=== PATIENT | female | born 1965 | race Two or more races ===

== ENCOUNTER 2025-01-01 15:04 | Emergency (ER) | payer MEDICAID, OTHER ==
[~2025-01-01] VITALS: Ht 154.9 cm; Wt 62.9 kg
--- NOTE | 2025-01-01 15:56 | ED.PDOC ---
Altered Mental Status HPI Comments 59 year old female brought in by presents to the ED with chief complaint of ALOC. reports that the patient has been experiencing increasing confusion and and imbalance for the last 8 months. relays that the patient may have Alzheimer's, but she has not had a proper evaluation due to insurance issues. Patient is not able to answer questions appropriately and is noted to cry frequently when asked questions. denies any chest pain, SOB, dizziness, headache, N/V, numbness, or weakness. Chief Complaint: ALOC Time Seen by MD: 15:52 Reviewed Notes: Nurses Notes, Medications, Allergies Allergies: Coded Allergies: Codeine (Verified Allergy, Unknown, 01/01/25) Information Source: Patient, Spouse Mode of Arrival: Ambulatory Severity: Moderate Timing: Months Duration: Since onset Prehospital treatment: None Quality: Confusion, Memory Loss History of: Dementia Past Medical History PAST MEDICAL HISTORY: HTN Past Medical History (Other): Possible Alzheimers Surgical History: Denies all surgeries OPHTHALMIC AIDE History: Denies all OPHTHALMIC AIDE Hx Family History Family History: Reviewed,noncontributory to illness Social History Smoker: Non-Smoker Alcohol: Denies ETOH Use Drugs: Denies Drug Use Lives In: Home Constitutional: denies: chills, diaphoresis, fatigue, fever, malaise, sweats, weakness, others EENTM: denies: blurred vision, double vision, ear bleeding, ear discharge, ear drainage, ear pain, ear ringing, eye pain, eye redness, hearing loss, mouth pain, mouth swelling, nasal discharge, nose bleeding, nose congestion, nose pain, photophobia, tearing, throat pain, throat swelling, voice changes, others Respiratory: denies: cough, hemoptysis, orthopnea, SOB at rest, shortness of breath, SOB with excertion, stridor, wheezing, others Cardiovascular: denies: chest pain, dizzy spells, diaphoresis, Dyspnea on exertion, edema, irregular heart beat, left arm pain, lightheadedness, palpitations, PND, syncope, others Gastrointestinal: denies: abdomen distended, abdominal pain, blood streaked bowels, constipated, diarrhea, dysphagia, difficulty swallowing, hematemesis, melena, nausea, poor appetite, poor fluid intake, rectal bleeding, rectal pain, vomiting, others Genitourinary: denies: abnormal vagina bleeding, burning, dyspareunia, dysuria, flank pain, frequency, hematuria, incontinence, pain, , vagina discharge, urgency, others Neurological: reports: others (Imbalance, Confusion); denies: dizziness, fainting, headache, left sided numbness, left sided weakness, numbness, paresthesia, pre-existing deficit, right sided numbness, right sided weakness, seizure, speech problems, tingling, tremors, weakness Musculoskeletal: denies: back pain, gout, joint pain, joint swelling, muscle pain, muscle stiffness, neck pain, others Integumetry: denies: bruises, change in color, change in hair/nails, dryness, laceration, lesions, lumps, rash, wounds, others Allergic/Immunocompromised: denies: Difficulty Healing, Frequent Infections, Hives, Itching, others Hematologic/Lymphatic: denies: anemia, blood clots, easy bleeding, easy bruising, swollen glands, others Endocrine: denies: excessive hunger, excessive sweating, excessive thirst, excessive urination, flushing, intolerance to cold, intolerance to heat, unexplained weight gain, unexplained weight loss, others Psychiatric: denies: anxiety, bipolar disorder, depression, hopeless, panic disorder, schizophrenia, sleepless, suicidal, others Unable to Obtain due to: Altered Mental Status All Other Systems: Reviewed and Negative Physical Exam General Appearance: Moderate Distress ( patient was in mild to moderate distress due to her complaints. Patient was tearful and unable to answer questions related to her medical history or questions related to her chief complaint at arrival.), Normal HEENT: Normal ENT Inspection, Pharynx Normal, TMs Normal Neck: Full Range of Motion, Non-Tender, Normal, Normal Inspection Respiratory: Chest Non-Tender, Lungs Clear, No Accessory Muscle Use, No Respiratory Distress, Normal Breath Sounds Cardiovascular: No Edema, No JVD, No Murmur, No Gallop, Normal Peripheral Pulses, Regular Rate/Rhythm Breast Exam: Deferred Gastrointestinal: No Organomegaly, Non Tender, No Pulsatile Mass, Normal Bowel Sounds, Soft Genitalia: Deferred Pelvic: Deferred Rectal: Deferred Extremities: No calf tenderness, Normal capillary refill, No pedal edema Musculoskeletal : Apperance: Normal Neurologic: NOT DONE Cerebellar Function: NOT DONE Reflexes: NOT DONE Skin: Dry, Normal Color, Warm Lymphatic: No Adenopathy Was a procedure done? Was a procedure done?: No Differential Diagnosis (ALOC) Differential Diagnosis: Other ( Intracranial mass, subarachnoid hemorrhage, subdural hematoma, early-onset Alzheimer's, early-onset dementia, sepsis, electrolyte abnormality) X-Ray, Labs, Meds, VS Vital Signs Date Time Temp Pulse Resp B/P (MAP) Pulse Ox O2 Delivery O2 Flow Rate FiO2 01/01/25 18:30 154/85 01/01/25 18:00 62 17 154/85 (108) 95 01/01/25 17:40 163/94 01/01/25 17:00 62 01/01/25 16:30 98.0 64 17 163/94 (117) 95 98.0 01/01/25 16:30 64 17 95 Room Air* 0 21 01/01/25 15:50 61 01/01/25 15:28 98.4 72 18 147/93 (111) 99 Lab Test 01/01/25 16:19 01/01/25 15:44 Range/Units White Blood Count 9.8 4.4-10.8 10^3/uL Red Blood Count 5.17 4.0-5.20 10^6/uL Hemoglobin 14.3 12.2-16.2 g/dL Hematocrit 43.0 36.0-46.0 % Mean Corpuscular Volume 83.2 80.0-100.0 fL Mean Corpuscular Hemoglobin 27.7 L 28.0-32.0 pg Mean Corpuscular Hemoglobin Concent 33.3 32.0-36.0 g/dL Red Cell Distribution Width 14.5 H 11.8-14.3 % Platelet Count 398 140-450 10^3/uL Mean Platelet Volume 8.1 6.9-10.8 fL Neutrophils (%) (Auto) 59.6 37.0-80.0 % Lymphocytes (%) (Auto) 28.7 10.0-50.0 % Monocytes (%) (Auto) 8.8 0.0-12.0 % Eosinophils (%) (Auto) 1.4 0.0-7.0 % Basophils (%) (Auto) 1.5 0.0-2.0 % Neutrophils # (Auto) 5.8 1.6-8.6 10 ^3/uL Lymphocytes # (Auto) 2.8 0.4-5.4 10 ^3/uL Monocytes # (Auto) 0.9 0-1.3 10 ^3/uL Eosinophils # (Auto) 0.1 0-0.8 10 ^3/uL Basophils # (Auto) 0.1 0-0.2 10 ^3/uL Nucleated Red Blood Cells 0.1 % Sodium Level 142 136-145 mmol/L Potassium Level 3.6 3.5-5.1 mmol/L Chloride Level 107 98-107 mmol/L Carbon Dioxide Level 30 20-31 mmol/L Anion Gap 5 5-15 Blood Urea Nitrogen 18 9-23 mg/dL Creatinine 0.87 0.550-1.02 mg/dL Glomerular Filtration Rate Calc 76 >90 mL/min BUN/Creatinine Ratio 20.7 H 10.0-20.0 Serum Glucose 110 H 74-106 mg/dL Calcium Level 10.1 8.7-10.4 mg/dL Magnesium Level 2.5 1.6-2.6 mg/dL Total Bilirubin 0.3 0.2-1.0 mg/dL Aspartate Amino Transferase (AST) 18 13-40 U/L Alanine Aminotransferase (ALT) 33 7-40 U/L Alkaline Phosphatase 102 46-116 U/L Troponin I High Sensitivity 4 </=34 ng/L Total Protein 6.9 5.7-8.2 g/dL Albumin 4.6 3.2-4.8 g/dL Plasma/Serum Blood Alcohol < 3.0 <10 mg/dL POC Glucose 117 H 70-106 mg/dl Current Medications Medications (Trade) Dose Ordered Sig/Stephanie Route Start Time Stop Time Status Last Admin Clonidine HCl (Catapres Tablet) 0.2 mg ONCE ONCE PO 01/01/25 17:15 01/01/25 17:16 DC 01/01/25 17:40 CT Head: FINDINGS: Supratentorial Region: No evidence for large acute territorial ischemia. Age- indeterminate infarcts are seen in the bilateral caudate heads, lentiform nuclei and thalami. No intracranial hemorrhage is noted. Confluent white matter hypoattenuating foci are noted bilaterally, which typically reflect chronic microvascular ischemic changes. Posterior Fossa: No acute abnormality. Brainstem: Old lacunar infarcts are seen in callie. Sellar/Suprasellar Region: Unremarkable. Ventricles, Cisterns, Sulci: Age-appropriate. Orbits: Unremarkable. Paranasal Sinuses: Free fluid in the dependent part of left sphenoid sinus noted. No significant mucoperiosteal thickening. Mastoid Air Cells: Unremarkable. Vasculature: Intracranial arterial calcified plaque formation noted. Bones/Soft Tissues: No acute abnormality. Other: None. IMPRESSION: 1. No large acute territorial ischemia or intracranial hemorrhage. 2. 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 Correlate with focal findings. Further evaluation with MRI could be completed if clinically warranted. 3. Extensive chronic microvascular ischemic changes, advanced for patient's age. 4. Small amount of free fluid in the left maxillary sinus suggestive of acute sinusitis. X-Ray, Labs, Meds, VS Comment All studies performed the ED were evaluated by me personally. Serum studies were unremarkable for any systemic process. CT imaging studies were unremarkable for any large acute territorial ischemia or intracranial hemorrhage. Multiple age indeterminate lacunar infarcts when noted in the bilateral basal ganglia. Extensive chronic microvasculature ischemic changes were noticed. I put a request in for Dr. Cornejo to evaluate the patient, but the patient and her decided to leave [facility] prior to Dr. Cornejo's evaluation. Patient's sign an AMA form prior to leaving the campus.Advised the patient's of the necessity for the patient to be seen by a neurologist for full evaluation and management. Time of 1ST Reevaluation: 20:28 Reevaluation 1ST: Unchanged Consultation: PCP, Neurology Patient Education/Counseling: Diagnosis, Treatment Family Education/Counseling: Diagnosis, Treatment Departure 1 Departure Time of Disposition: 20:29 Impression: Primary Impression: Altered mental status Disposition: 07 LEFT AGAINST MEDICAL ADVICE Condition: Fair Discharged With: Self, Spouse Critical Care Note Critical Care Time?: No Stability Stability form required: No Heart Score Heart Score: Heart Score Response (Comments) Value History N/A 0 EKG N/A 0 Age N/A 0 Risk Factors N/A 0 Troponin N/A 0 Total 0 I personally scribed for FINA GAMBOA PAC ([email or web address]) on 01/01/25 at 15:56. Electronically submitted by Juve Valdez ([email or web address]). I personally scribed for FINA GAMBOA PAC ([email or web address]) on 01/01/25 at 16:48. Electronically submitted by Juve Valdez ([email or web address]). FINA GAMBOA PAC Jan 01, 2025 15:56
--- NOTE | 2025-01-01 16:26 | DVH ---
EXAM: CT HEAD WITHOUT CONTRAST HISTORY: Altered COMPARISON: None TECHNIQUE: Axial images were obtained and reformatted in coronal and sagittal planes. All CT scans at this medical facility are performed using dose modulation techniques as appropriate t o a performed exam including the following: Automated exposure control was utilized; adjustment of th e MA and/or KV according to patient size; and use of iterative reconstruction technique. CT Dose: CTDI volume is 53.43 mGy. Dose-length product is 945.86 mGy*cm FINDINGS: Supratentorial Region: No evidence for large acute territorial ischemia. Age-indeterminate infarcts are seen in the bilateral caudate heads, lentiform nuclei and thalami. No intracranial hemorrhage is noted. Confluent white matter hypoattenuating foci are noted bilaterally, which typically reflect chr onic microvascular ischemic changes. Posterior Fossa: No acute abnormality. Brainstem: Old lacunar infarcts are seen in callie. Sellar/Suprasellar Region: Unremarkable. Ventricles, Cisterns, Sulci: Age-appropriate. Orbits: Unremarkable. Paranasal Sinuses: Free fluid in the dependent part of left sphenoid sinus noted. No significant muc operiosteal thickening. Mastoid Air Cells: Unremarkable. Vasculature: Intracranial arterial calcified plaque formation noted. Bones/Soft Tissues: No acute abnormality. Other: None. IMPRESSION: 1. No large acute territorial ischemia or intracranial hemorrhage. 2. 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 Correlate with focal findings. Further evaluation with MRI could be completed if clinically warranted. 3. Extensive chronic microvascular ischemic changes, advanced for patient's age. 4. Small amount of free fluid in the left maxillary sinus suggestive of acute sinusitis.
[2025-01-01 16:27] LABS: Basophils # (auto) 0.1 10 ^3/uL (0-0.2); Basophils % (auto) 1.5 % (0.0-2.0); Eosinophils # (auto) 0.1 10 ^3/uL (0-0.8); Eosinophils % (auto) 1.4 % (0.0-7.0); Hemoglobin 14.3 g/dL (12.2-16.2); Lymphocytes # (auto) 2.8 10 ^3/uL (0.4-5.4); Lymphocytes % (auto) 28.7 % (10.0-50.0); Mean Corpuscular Hemoglobin 27.7 pg (28.0-32.0); Mean Corpuscular Hgb Conc. 33.3 g/dL (32.0-36.0); Mean Corpuscular Volume 83.2 fL (80.0-100.0); Monocytes # (auto) 0.9 10 ^3/uL (0-1.3); Monocytes % (auto) 8.8 % (0.0-12.0); Neutrophils # (auto) 5.8 10 ^3/uL (1.6-8.6); Neutrophils % (auto) 59.6 % (37.0-80.0); Nucleated Red Blood Cells % 0.1 %; Platelet Count (auto) 398 10^3/uL (140-450); Red Blood Cells 5.17 10^6/uL (4.0-5.20); Red Cell Distribution Width 14.5 % (11.8-14.3); White Blood Cell 9.8 10^3/uL (4.4-10.8)
[2025-01-01 16:30] VITALS: PULSE 64; RESP 17; O2SAT 95
[2025-01-01 16:40] LABS: Alanine Aminotransferase 33 U/L (7-40); Alkaline Phosphatase 102 U/L (46-116); Anion Gap 5 (5-15); Aspartate Aminotransferase 18 U/L (13-40); BUN/Creatinine Ratio 20.7 (10.0-20.0); Blood Urea Nitrogen 18 mg/dL (9-23); Calcium 10.1 mg/dL (8.7-10.4); Carbon Dioxide 30 mmol/L (20-31); Chloride 107 mmol/L (98-107); Magnesium 2.5 mg/dL (1.6-2.6); Potassium 3.6 mmol/L (3.5-5.1); Sodium 142 mmol/L (136-145); Total Protein 6.9 g/dL (5.7-8.2)
[2025-01-01 16:41] LABS: Albumin 4.6 g/dL (3.2-4.8)
[2025-01-01 16:42] LABS: Bilirubin, Total 0.3 mg/dL (0.2-1.0); Blood Alcohol < 3.0 mg/dL (<10); Glucose 110 mg/dL (74-106)
[2025-01-01] MEDS: cloNIDine HCL 0.1 MG TAB PO ONE (17:40)
[2025-01-01 20:00] VITALS: BP 132/90; PULSE 68; RESP 12; TEMP 98; O2SAT 97
--- NOTE | 2025-01-01 20:10 | DVHINCON2 ---
Date of service: Jan 01, 2025 Referring Physician Tylor Reason for Consultation Altered mental status History of Present Illness The patient was left AMA 01/01/25 59 year old female brought in by presents to the ED with chief complaint of ALOC. reports that the patient has been experiencing increasing confusion and and imbalance for the last 8 months. relays that the patient may have Alzheimer's, but she has not had a proper evaluation due to insurance issues. Patient is not able to answer questions appropriately and is noted to cry frequently when asked questions. denies any chest pain, SOB, dizziness, headache, N/V, numbness, or weakness. Chief Complaint: ALOC Plasma alcohol, : <3 CBC, 01/01/2025: Unremarkable CMP, 01/01/2025: Unremarkable CT head, 01/01/2025: 1. No large acute territorial ischemia or intracranial hemorrhage. 2. 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 Correlate with focal findings. Further evaluation with MRI could be completed if clinically warranted. 3. Extensive chronic microvascular ischemic changes, advanced for patient's age. 4. Small amount of free fluid in the left maxillary sinus suggestive of acute sinusitis (Old lacunar infarcts are seen in callie) Happened vision, dementia Denies all surgeries Reviewed,noncontributory to illness Smoker: Non-Smoker Alcohol: Denies ETOH Use Drugs: Denies Drug Use Lives In: Home Allergies: Coded Allergies: Codeine (Verified Allergy, Unknown, 01/01/25) Vital Signs Vital Signs Date Time Temp Pulse Resp B/P (MAP) Pulse Ox O2 Delivery O2 Flow Rate FiO2 01/01/25 18:30 154/85 01/01/25 18:00 62 17 95 01/01/25 16:30 98.0 98.0 01/01/25 16:30 Room Air* 0 21 Labs/Diagnostic Data Labs Test 01/01/25 16:19 01/01/25 15:44 Range/Units White Blood Count 9.8 4.4-10.8 10^3/uL Red Blood Count 5.17 4.0-5.20 10^6/uL Hemoglobin 14.3 12.2-16.2 g/dL Hematocrit 43.0 36.0-46.0 % Mean Corpuscular Volume 83.2 80.0-100.0 fL Mean Corpuscular Hemoglobin 27.7 L 28.0-32.0 pg Mean Corpuscular Hemoglobin Concent 33.3 32.0-36.0 g/dL Red Cell Distribution Width 14.5 H 11.8-14.3 % Platelet Count 398 140-450 10^3/uL Mean Platelet Volume 8.1 6.9-10.8 fL Neutrophils (%) (Auto) 59.6 37.0-80.0 % Lymphocytes (%) (Auto) 28.7 10.0-50.0 % Monocytes (%) (Auto) 8.8 0.0-12.0 % Eosinophils (%) (Auto) 1.4 0.0-7.0 % Basophils (%) (Auto) 1.5 0.0-2.0 % Neutrophils # (Auto) 5.8 1.6-8.6 10 ^3/uL Lymphocytes # (Auto) 2.8 0.4-5.4 10 ^3/uL Monocytes # (Auto) 0.9 0-1.3 10 ^3/uL Eosinophils # (Auto) 0.1 0-0.8 10 ^3/uL Basophils # (Auto) 0.1 0-0.2 10 ^3/uL Nucleated Red Blood Cells 0.1 % Sodium Level 142 136-145 mmol/L Potassium Level 3.6 3.5-5.1 mmol/L Chloride Level 107 98-107 mmol/L Carbon Dioxide Level 30 20-31 mmol/L Anion Gap 5 5-15 Blood Urea Nitrogen 18 9-23 mg/dL Creatinine 0.87 0.550-1.02 mg/dL Glomerular Filtration Rate Calc 76 >90 mL/min BUN/Creatinine Ratio 20.7 H 10.0-20.0 Serum Glucose 110 H 74-106 mg/dL Calcium Level 10.1 8.7-10.4 mg/dL Magnesium Level 2.5 1.6-2.6 mg/dL Total Bilirubin 0.3 0.2-1.0 mg/dL Aspartate Amino Transferase (AST) 18 13-40 U/L Alanine Aminotransferase (ALT) 33 7-40 U/L Alkaline Phosphatase 102 46-116 U/L Troponin I High Sensitivity 4 </=34 ng/L Total Protein 6.9 5.7-8.2 g/dL Albumin 4.6 3.2-4.8 g/dL Plasma/Serum Blood Alcohol < 3.0 <10 mg/dL POC Glucose 117 H 70-106 mg/dl Plan discussed with: Other SUMI OCHOA MD Jan 01, 2025 20:10
--- NOTE | 2025-01-03 04:34 | ECG ---
[facility] Test Date: 2025-01-01 Test Time: 15:44:42 Pat Name: GABY GODFREY Department: ER Room: Gender: F Retail Shift Supervisor: JANELLE : 1965 Requested By: FINA GAMBOA Order Number: [id number] Reading MD: Measurements Intervals [place] Rate: 78 P: 52 OR: 140 QRS: 74 QRSD: 81 T: -1 QT: 375 QTc: 428 Interpretive Statements Sinus rhythm Borderline repolarization abnormality Please click the below link to view image of tracing.
== END 2025-01-01 20:25 | disposition left against medical advice (07) ==
LOC: ER 15:04
DX: R41.82 Altered mental status, unspecified (principal); I10 Essential (primary) hypertension; Z88.5 Allergy status to narcotic agent
CPT/HCPCS: 36415; 70450; 80053; 80320; 82947; 82962; 83735; 84484; 85025; 93005

== ENCOUNTER 2025-01-02 13:34 | Inpatient (IN) | payer MEDICAID ==
[~2025-01-02] VITALS: Ht 152.4 cm; Wt 56.7 kg
--- NOTE | 2025-01-02 15:39 | ED.PDOC ---
Altered Mental Status HPI Comments 59y F who presents to the ED for chief complaint of ALOC. Pt was brought to the ED by who states pt has not been acting like herself for the past 2-3 days. Pt spouse states pt has been having confusion intermittent for the past 9 months but states is has gotten worse over the past 2 days with new noted nina ges in gait. Pt now in the ED, is ax1 and not able to provide correct answers to orientation questions, but is able to recall allergy to codeine. Pt spouse denies any associated fall injury or recent loss of consciousness. Pt spouse states due to insurance problems, pt has not been able to see any PCP but pt was evaluated by Dr Lara's 6 months . Patient was seen here yesterday and admitted for evaluation by neurologist but pt left AMA with . Pt in the ED, otherwise has stable vitals. Pt otherwise has noted history of Meth abuse in the past. Pt has temp of 98.3 F, 96% 02 sat on room air, and BP of 136/97 with all other vitals in normal range. Pt denies any other symptoms at this time. 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 Family History Family History: Reviewed,noncontributory to illness Social History Smoker: Cigarettes Alcohol: Denies ETOH Use Drugs: Methamphetamine Lives In: Home Constitutional: denies: chills, diaphoresis, fatigue, fever, malaise, sweats, weakness, others EENTM: denies: blurred vision, double vision, ear bleeding, ear discharge, ear drainage, ear pain, ear ringing, eye pain, eye redness, hearing loss, mouth pain, mouth swelling, nasal discharge, nose bleeding, nose congestion, nose pain, photophobia, tearing, throat pain, throat swelling, voice changes, others Respiratory: denies: cough, hemoptysis, orthopnea, SOB at rest, shortness of breath, SOB with excertion, stridor, wheezing, others Cardiovascular: denies: chest pain, dizzy spells, diaphoresis, Dyspnea on exertion, edema, irregular heart beat, left arm pain, lightheadedness, palpit ations, PND, syncope, others Gastrointestinal: denies: abdomen distended, abdominal pain, blood streaked b owels, constipated, diarrhea, dysphagia, difficulty swallowing, hematemesis, melena, nausea, poor appetite, poor fluid intake, rectal bleeding, rectal pain, vomiting, others Genitourinary: denies: abnormal vagina bleeding, burning, dyspareunia, dysuria, flank pain, frequency, hematuria, incontinence, pain, , vagina discharge, urgency, others Neurological: denies: dizziness, fainting, headache, left sided numbness, left sided weakness, numbness, paresthesia, pre-existing deficit, right sided numbness, right sided weakness, seizure, speech problems, tingling, tremors, weakness, others Musculoskeletal: denies: back pain, gout, joint pain, joint swelling, muscle pain, muscle stiffness, neck pain, others Integumetry: denies: bruises, change in color, change in hair/nails, dryness, laceration, lesions, lumps, rash, wounds, others Allergic/Immunocompromised: denies: Difficulty Healing, Frequent Infections, Hives, Itching, others Hematologic/Lymphatic: denies: anemia, blood clots, easy bleeding, easy brui sing, swollen glands, others Endocrine: denies: excessive hunger, excessive sweating, excessive thirst, ex cessive urination, flushing, intolerance to cold, intolerance to heat, unexplained weight gain, unexplained weight loss, others Psychiatric: denies: anxiety, bipolar disorder, depression, hopeless, panic disorder, schizophrenia, sleepless, suicidal, others Unable to Obtain due to: Altered Mental Status All Other Systems: Reviewed and Negative Physical Exam General Appearance: Mild Distress HEENT: PERRL/EOMI Neck: Full Range of Motion, Normal Inspection Respiratory: Lungs Clear, No Accessory Muscle Use, No Respiratory Distress, Normal Breath Sounds Cardiovascular: No Edema, No JVD, Regular Rate/Rhythm Breast Exam: Deferred Gastrointestinal: Non Tender, Soft Genitalia: Deferred Pelvic: Deferred Rectal: Deferred Extremities: Normal inspection, Normal range of motion, Non-tender, No pedal edema Neurologic: Alert (Oriented x1), Other (Tearful. Ambulatory. No gross focal deficit.) Cerebellar Function: NOT DONE Reflexes: NOT DONE Skin: Dry, Normal Color, Warm Lymphatic: NOT DONE EKG EKG : Comments Sinus rhythm, rate 74, normal intervals, left axis deviation, possible old inferior infarct, no ST/T changes. Was a procedure done? Was a procedure done?: No Differential Diagnosis (ALOC) Differential Diagnosis: Hypoglycemia, DKA, Encephalopathy, Meningitis, Sepsis, Hypoxemia, Closed Head Injury, ETOH Intoxication Other Differential Diagnosis metabolic encephalopathy, CVA, sepsis, hepatic encephalopathy, drug use, TIA, delirium tremens, Wernicke's encephalopathy X-Ray, Labs, Meds, VS Vital Signs Date Time Temp Pulse Resp B/P (MAP) Pulse Ox O2 Delivery O2 Flow Rate FiO2 01/02/25 19:43 81 20 94 Room Air* 0 21 01/02/25 19:43 97.9 81 20 117/100 (106) 94 97.9 01/02/25 18:00 75 17 101/67 (78) 95 01/02/25 16:30 73 17 129/87 (101) 97 01/02/25 15:00 72 17 128/77 (94) 97 01/02/25 14:55 Room Air* 0 21 01/02/25 13:58 74 01/02/25 13:50 98.3 77 18 136/97 (110) 96 Lab Test 01/02/25 17:39 01/02/25 16:45 01/02/25 16:40 01/02/25 15:40 Range/Units Lactic Acid Level 1.9 2.3 *H 0.4-2.0 mmol/L Urine Color Light-yellow Yellow Urine Clarity Clear Clear Urine pH 5.5 5.0-9.0 Urine Specific Webster 1.025 1.001-1.035 Urine Protein Trace H Negative Urine Ketones Negative Negative Urine Blood Negative Negative /uL Urine Nitrite 1+ H Negative Urine Bilirubin Negative Negative Urine Urobilinogen Normal Negative mg/dL Urine Leukocyte Esterase 1+ Negative /uL Urine RBC 2 0 - 4 /hpf Urine Microscopic WBC 31 H 0-5 /HPF Urine Squamous Epithelial Cells Few <5 /hpf Urine Bacteria Few H None Seen /hpf Urine Hyaline Casts Few 0 - 2 /lpf Urine Mucus Few None Seen Urine Glucose Normal Normal mg/dL Urine Opiates Screen Neg NEGATIVE Urine Fentanyl Screen Neg NEGATIVE Urine Barbiturates Screen Neg NEGATIVE Urine Phencyclidine Screen Neg NEGATIVE Urine Amphetamines Screen Pos NEGATIVE Urine Benzodiazepines Screen Neg NEGATIVE Urine Cocaine Screen Neg NEGATIVE Urine Cannabinoids Screen Neg NEGATIVE Troponin I High Sensitivity 4 4 </=34 ng/L White Blood Count 10.1 4.4-10.8 10^3/uL Red Blood Count 5.30 H 4.0-5.20 10^6/uL Hemoglobin 14.6 12.2-16.2 g/dL Hematocrit 44.6 36.0-46.0 % Mean Corpuscular Volume 84.1 80.0-100.0 fL Mean Corpuscular Hemoglobin 27.5 L 28.0-32.0 pg Mean Corpuscular Hemoglobin Concent 32.7 32.0-36.0 g/dL Red Cell Distribution Width 14.7 H 11.8-14.3 % Platelet Count 351 140-450 10^3/uL Mean Platelet Volume 8.2 6.9-10.8 fL Neutrophils (%) (Auto) 71.0 37.0-80.0 % Lymphocytes (%) (Auto) 21.0 10.0-50.0 % Monocytes (%) (Auto) 6.2 0.0-12.0 % Eosinophils (%) (Auto) 0.8 0.0-7.0 % Basophils (%) (Auto) 1.0 0.0-2.0 % Neutrophils # (Auto) 7.2 1.6-8.6 10 ^3/uL Lymphocytes # (Auto) 2.1 0.4-5.4 10 ^3/uL Monocytes # (Auto) 0.6 0-1.3 10 ^3/uL Eosinophils # (Auto) 0.1 0-0.8 10 ^3/uL Basophils # (Auto) 0.1 0-0.2 10 ^3/uL Nucleated Red Blood Cells 0.0 % Sodium Level 144 136-145 mmol/L Potassium Level 4.3 3.5-5.1 mmol/L Chloride Level 106 98-107 mmol/L Carbon Dioxide Level 32 H 20-31 mmol/L Anion Gap 6 5-15 Blood Urea Nitrogen 25 H 9-23 mg/dL Creatinine 0.96 0.550-1.02 mg/dL Glomerular Filtration Rate Calc 68 >90 mL/min BUN/Creatinine Ratio 26.0 H 10.0-20.0 Serum Glucose 122 H 74-106 mg/dL Calcium Level 10.3 8.7-10.4 mg/dL Total Bilirubin 0.4 0.2-1.0 mg/dL Aspartate Amino Transferase (AST) < 8 L 13-40 U/L Alanine Aminotransferase (ALT) 31 7-40 U/L Alkaline Phosphatase 103 46-116 U/L Ammonia < 10 L 11-32 umol/L B-Type Natriuretic Peptide 20.01 0-100 pg/mL Total Protein 6.9 5.7-8.2 g/dL Albumin 4.6 3.2-4.8 g/dL Plasma/Serum Blood Alcohol < 3.0 <10 mg/dL Test 01/02/25 13:46 Range/Units POC Glucose 140 H 70-106 mg/dl Current Medications Medications (Trade) Dose Ordered Sig/Stephanie Route Start Time Stop Time Status Last Admin Acetaminophen (Tylenol Tablet Or Capsule) 1,000 mg ONCE ONCE PO 01/02/25 18:15 01/02/25 18:16 DC 01/02/25 18:27 Sodium Chloride 1,000 ml @ 1,000 mls/hr Q1H ONCE IV 01/02/25 18:15 01/02/25 19:14 DC 01/02/25 18:28 Ceftriaxone Sodium 50 ml @ 100 mls/hr ONCE ONCE IV 01/02/25 18:15 01/02/25 18:44 DC 01/02/25 18:27 Acetaminophen (Tylenol Tablet) 650 mg Q6HP PRN PO 01/02/25 19:45 01/02/25 20:17 [place] [address] Ph: [phone] DIAGNOSTIC IMAGING Diagnostic Imaging Report : [id number] Signed PATIENT: GABY GODFREY ACCT: [id number] UNIT: [id number] : 1965 LOC: ER ROOM / BED: / AGE / SEX: 59 / F ADM STATUS: REG ER SERVICE 1520 ORDERING PHYSICIAN: MARIANNA MOLINA MD PROCEDURE(s): HWOCT - HEAD WITHOUT CONTRAST REASON: confusion, dizzy ORDER NUMBER(s): [id number], ACCESSION NUMBER(s): [id number] EXAM: CT HEAD WITHOUT CONTRAST INDICATION: confusion, dizzy TECHNIQUE: CT of the head without intravenous contrast. Radiation Dose Information: CT Dose: CTDI volume is 49.93 mGy. Dose-length product is 800.66 mGy*cm The dose indicators for CT are the volume Computed Tomography (CT) Dose Index (CTDIvol) and the Dose Length Product (DLP), and are measured in units of mGy and mGy-cm, respectively. These indicators are not patient dose, but values generated from the CT scanner acquisition factors. The report includes radiation exposure data for exposures received during this examination. COMPARISON: CT HEAD WITHOUT CONTRAST on DOS: 01/01/25 FINDINGS: There is no evidence of acute intracranial hemorrhage, extra-axial collection, mass effect, midline shift, herniation or hydrocephalus. Cortical atrophy with periventricular microvascular angiopathy. Old lacunar infarcts in the basal ganglia bilaterally as well as in the thalami bilaterally. The ventricles, sulci and cisterns are age appropriate. The gomez-white differentiation is intact. Patchy periventricular and subcortical white matter hypoattenuation is nonspecific but may be related to small vessel ischemic disease. The visualized paranasal sinuses and mastoid air cells are clear. The surrounding soft tissues and osseous structures are unremarkable. IMPRESSION: 1. No acute intracranial hemorrhage. 2. Old bilateral basal ganglia infarcts and bilateral ischemic changes in the right and left thalamus. 3. Cortical atrophy and microvascular angiopathy. 4. If acute infarct is of clinical concern recommend MRI. ATED BY: DOMENIC MADRIGAL Jr., DO DICTATED DATE/TIME: 01/02/25 154 SIGNED BY: DOMENIC MADRIGAL Jr., SIGNED DATE/TIME: 01/02/25 154 CC: [place] [address] Ph: [phone] DIAGNOSTIC IMAGING Diagnostic Imaging Report : [id number] Signed PATIENT: GABY GODFREY ACCT: [id number] UNIT: [id number] : 1965 LOC: ER ROOM / BED: / AGE / SEX: 59 / F ADM STATUS: REG ER SERVICE 1520 ORDERING PHYSICIAN: MARIANNA MOLINA MD PROCEDURE(s): CXRP - CHEST PORTABLE REASON: altered mental status ORDER NUMBER(s): [id number], ACCESSION NUMBER(s): [id number] CHEST RADIOGRAPH Indication: altered mental status Technique: Single frontal view of the chest was obtained Comparison: None FINDINGS: Lines and Tubes: None Lungs: No focal consolidation. Pleura: No effusion. No pneumothorax. Cardiomediastinal contours: Unremarkable Bones: No acute osseous abnormality. IMPRESSION: 1. No acute cardiopulmonary disease. ATED BY: DOMENIC MADRIGAL Jr., DO DICTATED DATE/TIME: 01/02/251545 SIGNED BY: DOMENIC MADRIGAL Jr., SIGNED DATE/TIME: 01/02/251545 CC: X-Ray, Labs, Meds, VS Comment 59-year-old female with a history of hypertension and methamphetamine abuse brought in by spouse for evaluation of altered mental status Vitals unremarkable Exam remarkable for orientation x1, no focal neurologic deficit Rhythm strip independently interpreted by me: Sinus rhythm, rate 74, no ectopy. CT head IMPRESSION: 1. No acute intracranial hemorrhage. 2. Old bilateral basal ganglia infarcts and bilateral ischemic changes in the right and left thalamus. 3. Cortical atrophy and microvascular angiopathy. 4. If acute infarct is of clinical concern recommend MRI. Chest x-ray IMPRESSION: 1. No acute cardiopulmonary disease. See unremarkable, metabolic panel remarkable for CO2 32, BUN 25, ammonia level less than 10, BNP and 2 serial troponins negative, lactate 2.9, 1.9 on repeat, UA abnormal consistent with UTI, urine drug screen positive for amphetamines, serum alcohol level negative Patient treated with the following in the ED: 1 L 0.9 normal saline IV bolus, Tylenol 1 g p.o. for headache, Rocephin 1 g IV for UTI On re-evaluation, patient is still oriented x1. Vitals were stable. No new neurologic changes. Plan is to admit the patient for IV antibiotics, brain MRI and neuro evaluation. Time of 1ST Reevaluation: 16:00 Reevaluation 1ST: Unchanged Patient Education/Counseling: Diagnosis, Treatment, Prognosis Family Education/Counseling: Diagnosis, Treatment, Prognosis Additional Information -Reviewed patient's previous visit(s): - The following tests were ordered, and results were reviewed by me: ekg x1 , trop x2, cbc, cmp, bnp, chest x-ray, ua, ammonia, blood alcohol, Ct head w/0 contrast, lactic acid, - Additional information was gathered from interviewing the following independent Historian: pt and pt - I reviewed and agreed with the following test results read by other provider: radiologist - I discussed treatments and results with medical personnel and: patient and pt Comprehensive systems review obtained and negative except for what is stated in the HPI. Departure 1 Departure Time of Disposition: 18:05 Impression: Primary Impression: Metabolic encephalopathy Additional Impressions: UTI (urinary tract infection) Qualified Codes: N39.0 - Urinary tract infection, site not specified Amphetamine abuse Disposition: ADMITTED INPATIENT Admit to: Tele Condition: Guarded Critical Care Note Critical Care Time?: No Stability Stability form required: No Heart Score Heart Score: Heart Score Response (Comments) Value History N/A 0 EKG N/A 0 Age N/A 0 Risk Factors N/A 0 Troponin N/A 0 Total 0 I personally scribed for MARIANNA MOLINA MD ([email or web address]) on 01/02/25 at 15:39. Electronically submitted by Ankur Garza ([facility] [email or web address]). I personally scribed for MARIANNA MOLINA MD ([email or web address]) on 01/02/25 at 16:09. Electronically submitted by Ankur Garza ([facility] [email or web address]). MARIANNA MOLINA MD Jan 02, 2025 15:39
--- NOTE | 2025-01-02 15:47 | DVH ---
EXAM: CT HEAD WITHOUT CONTRAST INDICATION: confusion, dizzy TECHNIQUE: CT of the head without intravenous contrast. Radiation Dose Information: CT Dose: CTDI volume is 49.93 mGy. Dose-length product is 800.66 mGy*cm The dose indicators for CT are the volume Computed Tomography (CT) Dose Index (CTDIvol) and the Dose Length Product (DLP), and are measured in units of mGy and mGy-cm, respectively. These indicators are not patient dose, but values generated from the CT scanner acquisition factors. The report includes radiation exposure data for exposures received during this examination. COMPARISON: CT HEAD WITHOUT CONTRAST on DOS: 01/01/25 FINDINGS: There is no evidence of acute intracranial hemorrhage, extra-axial collection, mass effect, midline s hift, herniation or hydrocephalus. Cortical atrophy with periventricular microvascular angiopathy. Old lacunar infarcts in the basal ganglia bilaterally as well as in the thalami bilaterally. The ventricles, sulci and cisterns are age appropriate. The gomez-white differentiation is intact. Patchy periventricular and subcortical white matter hypoattenuation is nonspecific but may be related to small vessel ischemic disease. The visualized paranasal sinuses and mastoid air cells are clear. The surrounding soft tissues and osseous structures are unremarkable. IMPRESSION: 1. No acute intracranial hemorrhage. 2. Old bilateral basal ganglia infarcts and bilateral ischemic changes in the right and left thalamus . 3. Cortical atrophy and microvascular angiopathy. 4. If acute infarct is of clinical concern recommend MRI.
--- NOTE | 2025-01-02 15:48 | DVH ---
CHEST RADIOGRAPH Indication: altered mental status Technique: Single frontal view of the chest was obtained Comparison: None FINDINGS: Lines and Tubes: None Lungs: No focal consolidation. Pleura: No effusion. No pneumothorax. Cardiomediastinal contours: Unremarkable Bones: No acute osseous abnormality. IMPRESSION: 1. No acute cardiopulmonary disease.
[2025-01-02 15:54] LABS: Basophils # (auto) 0.1 10 ^3/uL (0-0.2); Eosinophils # (auto) 0.1 10 ^3/uL (0-0.8); Eosinophils % (auto) 0.8 % (0.0-7.0); Hematocrit 44.6 % (36.0-46.0); Hemoglobin 14.6 g/dL (12.2-16.2); Lymphocytes # (auto) 2.1 10 ^3/uL (0.4-5.4); Mean Corpuscular Hemoglobin 27.5 pg (28.0-32.0); Mean Corpuscular Hgb Conc. 32.7 g/dL (32.0-36.0); Mean Corpuscular Volume 84.1 fL (80.0-100.0); Monocytes # (auto) 0.6 10 ^3/uL (0-1.3); Monocytes % (auto) 6.2 % (0.0-12.0); Neutrophils # (auto) 7.2 10 ^3/uL (1.6-8.6); Platelet Count (auto) 351 10^3/uL (140-450); Red Cell Distribution Width 14.7 % (11.8-14.3); White Blood Cell 10.1 10^3/uL (4.4-10.8)
[2025-01-02 16:06] LABS: Alanine Aminotransferase 31 U/L (7-40); Albumin 4.6 g/dL (3.2-4.8); Alkaline Phosphatase 103 U/L (46-116); Anion Gap 6 (5-15); Calcium 10.3 mg/dL (8.7-10.4); Chloride 106 mmol/L (98-107); Potassium 4.3 mmol/L (3.5-5.1); Sodium 144 mmol/L (136-145); Total Protein 6.9 g/dL (5.7-8.2)
[2025-01-02 16:07] LABS: Bilirubin, Total 0.4 mg/dL (0.2-1.0)
[2025-01-02 16:08] LABS: Aspartate Aminotransferase < 8 U/L (13-40); Blood Alcohol < 3.0 mg/dL (<10); Blood Urea Nitrogen 25 mg/dL (9-23); Carbon Dioxide 32 mmol/L (20-31); Glucose 122 mg/dL (74-106)
[2025-01-02 16:28] LABS: Lactic Acid w/Reflex 2.3 mmol/L (0.4-2.0)
[2025-01-02 16:56] LABS: Urine Bacteria FEW /hpf (None Seen); Urine Blood Negative /uL (Negative); Urine Clarity Clear (Clear); Urine Color Light-Yellow (Yellow); Urine Hyaline Cast FEW /lpf (0 - 2); Urine Mucus FEW (None Seen); Urine Protein, UAD TRACE (Negative); Urine Specific Gravity 1.025 (1.001-1.035); Urine Squamous Epithelial Cell FEW /hpf (<5); Urine Urobilinogen Normal (Negative); Urine WBC 31 /HPF (0-5); Urine pH 5.5 (5.0-9.0)
[2025-01-02 17:05] LABS: Amphetamine Screen, Urine Pos (NEGATIVE); Barbiturate Scree,Urine Neg (NEGATIVE); Benzodiazephine Screen, Urine Neg (NEGATIVE); Cannabinoid Screen, Urine Neg (NEGATIVE); Cocaine Screen, Urine Neg (NEGATIVE); Opiate Scree,Urine Neg (NEGATIVE); Phencyclidine Screen, Urine Neg (NEGATIVE)
[2025-01-02] MEDS: cefTRIAXone 1GM/50ML D5W 50 ML IV ONE (18:27)
[2025-01-02] MEDS: ACETAMINOPHEN 500 MG TAB or CAP PO ONE (18:27)
[2025-01-02] MEDS: SODIUM CHLORIDE 0.9% 1,000 ML IV ONE (18:28)
[2025-01-02 19:43] VITALS: PULSE 81; RESP 20; O2SAT 94
[2025-01-02] MEDS ORDERED: ONDANSETRON HCL 4 MG/2 ML VIAL IV PRN (19:45)
[2025-01-02] MEDS ORDERED: DOCUSATE SOD 100 MG CAP PO PRN (19:45)
[2025-01-02] MEDS: ACETAMINOPHEN 325 MG TAB PO PRN (20:17)
--- NOTE | 2025-01-02 21:40 | DVHHP2 ---
History of Present Illness Reason for Visit: Metabolic encephalopathy History of Present Illness The patient is a 59-year-old female with past medical history of hypertension who presented to [facility] ED for evaluation of altered level of consciousness. Patient was brought to the ED by who states she has not been acting like herself for the past 2-3 days, having confusion intermittent for the past 9 months, getting worse today that prompted this visit. Patient's spouse reports due to insurance problem she has not been able to see any PCP, but was evaluated by Dr Lara'kyler 6 months prior. Patient was not able to provide current answers to orientation, but is able to recall allergic to codeine. Patient was seen and evaluated in the ED, laboratory data shows WBC 10.1, platelets 351, sodium 144, potassium 4.5, BUN 25, creatinine 0.96, GFR 68, glucose 122, lactic acid 1.9, BNP 20.01. Head CT showed no acute intracranial hemorrhage. Urinalysis positive for urinary tract infection. Patient was started on IV antibiotic regimen Rocephin, please see medication orders section in the computer. On my assessment, patient is alert oriented x1, no headache, no dizziness, no shortness of breaths, no nausea, no vomiting, no fever, no chills. Patient was admitted for further evaluation and medical management. Past Medical History HTN Past Surgical History Hysterectomy Family History Reviewed, noncontributory to the management of this case. Past Social History Patient lives at home, smokes cigarettes, denies alcohol use, uses methamphetamine. Review of Systems Constitutional: Yes: Weakness; No: Fever, Chills, Sweats, Malaise, Other Eyes: No: Pain, Vision change, Conjunctivae inflammation, Eyelid inflammation, Other, Redness ENT: No: Ear pain, Ear discharge, Nose pain, Nose discharge, Nose congestion, Mouth pain, Mouth swelling, Throat pain, Throat swelling, Other Respiratory: No: Cough, Dry, Shortness of breath, SOB with excertion, Wheezing, Hemoptysis, Pleuritic Pain, Sputum, Wheezing, Other Cardiovascular: No: Chest Pain, Palpitations, Orthopnea, Paroxysmal Noc. Dyspnea, Edema, Lt Headedness, Other Gastrointestinal: No: Nausea, Vomiting, Abdominal Pain, Diarrhea, Constipation, Melena, Hematochezia, Other Genitourinary: No Dysuria, No Frequency, No Incontinence, No Hematuria, No Retention, No Other Musculoskeletal: No: other, neck pain, shoulder pain, arm pain, back pain, hand pain, leg pain, foot pain Skin: No: Rash, Lesions, Jaundice, Bruising, Other Neurological: Confusion, Other (Altered level of consciousness); No: Weakness, Numbness, Incoordination, Change in speech, Seizures Allergies: Coded Allergies: Codeine (Verified Allergy, Unknown, 01/01/25) Medications Current Medications Medications Dose Ordered Sig/Stephanie Route Start Time Stop Time Status Last Admin Dose Admin Ceftriaxone Sodium 50 ml @ 100 mls/hr Q24H IV 01/03/25 21:00 Sodium Chloride 10 ml Q8HR IV 01/02/25 22:00 Ondansetron HCl 4 mg Q4HP PRN IV 01/02/25 19:45 Docusate Sodium 100 mg BIDPRN PRN PO 01/02/25 19:45 Acetaminophen 650 mg Q6HP PRN PO 01/02/25 19:45 01/02/25 20:17 650 MG Exam Vital Signs Vital Signs Date Time Temp Pulse Resp B/P (MAP) Pulse Ox O2 Delivery O2 Flow Rate FiO2 01/02/25 19:43 81 20 94 Room Air* 0 21 01/02/25 19:43 97.9 117/100 (106) 97.9 General Appearance: Alert, Cooperative, No acute distress, Other (Oriented x1) HEENT: Atraumatic, PERRLA, EOMI, Mucous membr. moist/pink Respiratory: Clear to auscultation, Normal air movement Cardiovascular: Regular rate, Normal S1, Normal S2, No murmurs Abdominal: Normal bowel sounds, Soft, No tenderness, No hepatospenomegaly, No masses Extremities: No clubbing, No cyanosis, No edema, Normal pulses, No tenderness/swelling Skin: No rashes, No breakdown, No significant lesion Neuro: Normal speech, Normal tone, Sensation intact, Cranial nerves 3-12 NL, Reflexes 2+, Other (Generalized weakness) Psych/Mental Status: Mental status NL, Mood NL Labs/Xrays Labs Test 01/02/25 17:39 01/02/25 16:45 01/02/25 16:40 01/02/25 15:40 Range/Units Lactic Acid Level 1.9 0.4-2.0 mmol/L Urine Color Light-yellow Yellow Urine Clarity Clear Clear Urine pH 5.5 5.0-9.0 Urine Specific [place] 1.025 1.001-1.035 Urine Protein Trace H Negative Urine Ketones Negative Negative Urine Blood Negative Negative /uL Urine Nitrite 1+ H Negative Urine Bilirubin Negative Negative Urine Urobilinogen Normal Negative mg/dL Urine Leukocyte Esterase 1+ Negative /uL Urine RBC 2 0 - 4 /hpf Urine Microscopic WBC 31 H 0-5 /HPF Urine Squamous Epithelial Cells Few <5 /hpf Urine Bacteria Few H None Seen /hpf Urine Hyaline Casts Few 0 - 2 /lpf Urine Mucus Few None Seen Urine Glucose Normal Normal mg/dL Urine Opiates Screen Neg NEGATIVE Urine Fentanyl Screen Neg NEGATIVE Urine Barbiturates Screen Neg NEGATIVE Urine Phencyclidine Screen Neg NEGATIVE Urine Amphetamines Screen Pos NEGATIVE Urine Benzodiazepines Screen Neg NEGATIVE Urine Cocaine Screen Neg NEGATIVE Urine Cannabinoids Screen Neg NEGATIVE Troponin I High Sensitivity 4 </=34 ng/L White Blood Count 10.1 4.4-10.8 10^3/uL Red Blood Count 5.30 H 4.0-5.20 10^6/uL Hemoglobin 14.6 12.2-16.2 g/dL Hematocrit 44.6 36.0-46.0 % Mean Corpuscular Volume 84.1 80.0-100.0 fL Mean Corpuscular Hemoglobin 27.5 L 28.0-32.0 pg Mean Corpuscular Hemoglobin Concent 32.7 32.0-36.0 g/dL Red Cell Distribution Width 14.7 H 11.8-14.3 % Platelet Count 351 140-450 10^3/uL Mean Platelet Volume 8.2 6.9-10.8 fL Neutrophils (%) (Auto) 71.0 37.0-80.0 % Lymphocytes (%) (Auto) 21.0 10.0-50.0 % Monocytes (%) (Auto) 6.2 0.0-12.0 % Eosinophils (%) (Auto) 0.8 0.0-7.0 % Basophils (%) (Auto) 1.0 0.0-2.0 % Neutrophils # (Auto) 7.2 1.6-8.6 10 ^3/uL Lymphocytes # (Auto) 2.1 0.4-5.4 10 ^3/uL Monocytes # (Auto) 0.6 0-1.3 10 ^3/uL Eosinophils # (Auto) 0.1 0-0.8 10 ^3/uL Basophils # (Auto) 0.1 0-0.2 10 ^3/uL Nucleated Red Blood Cells 0.0 % Sodium Level 144 136-145 mmol/L Potassium Level 4.3 3.5-5.1 mmol/L Chloride Level 106 98-107 mmol/L Carbon Dioxide Level 32 H 20-31 mmol/L Anion Gap 6 5-15 Blood Urea Nitrogen 25 H 9-23 mg/dL Creatinine 0.96 0.550-1.02 mg/dL Glomerular Filtration Rate Calc 68 >90 mL/min BUN/Creatinine Ratio 26.0 H 10.0-20.0 Serum Glucose 122 H 74-106 mg/dL Calcium Level 10.3 8.7-10.4 mg/dL Total Bilirubin 0.4 0.2-1.0 mg/dL Aspartate Amino Transferase (AST) < 8 L 13-40 U/L Alanine Aminotransferase (ALT) 31 7-40 U/L Alkaline Phosphatase 103 46-116 U/L Ammonia < 10 L 11-32 umol/L B-Type Natriuretic Peptide 20.01 0-100 pg/mL Total Protein 6.9 5.7-8.2 g/dL Albumin 4.6 3.2-4.8 g/dL Plasma/Serum Blood Alcohol < 3.0 <10 mg/dL Test 01/02/25 13:46 Range/Units POC Glucose 140 H 70-106 mg/dl PATIENT: GABY GODFREY ACCT: [id number] UNIT: [id number] : 1965 LOC: ER ROOM / BED: / AGE / SEX: 59 / F ADM STATUS: REG ER SERVICE 1520 ORDERING PHYSICIAN: MARIANNA MOLINA MD PROCEDURE(s): HWOCT - HEAD WITHOUT CONTRAST REASON: confusion, dizzy ORDER NUMBER(s): [id number], ACCESSION NUMBER(s): [id number] EXAM: CT HEAD WITHOUT CONTRAST INDICATION: confusion, dizzy TECHNIQUE: CT of the head without intravenous contrast. Radiation Dose Information: CT Dose: CTDI volume is 49.93 mGy. Dose-length product is 800.66 mGy*cm The dose indicators for CT are the volume Computed Tomography (CT) Dose Index (CTDIvol) and the Dose Length Product (DLP), and are measured in units of mGy and mGy-cm, respectively. These indicators are not patient dose, but values generated from the CT scanner acquisition factors. The report includes radiation exposure data for exposures received during this examination. COMPARISON: CT HEAD WITHOUT CONTRAST on DOS: 01/01/25 FINDINGS: There is no evidence of acute intracranial hemorrhage, extra-axial collection, mass effect, midline shift, herniation or hydrocephalus. Cortical atrophy with periventricular microvascular angiopathy. Old lacunar infarcts in the basal ganglia bilaterally as well as in the thalami bilaterally. The ventricles, sulci and cisterns are age appropriate. The gomez-white differentiation is intact. Patchy periventricular and subcortical white matter hypoattenuation is nonspecific but may be related to small vessel ischemic disease. The visualized paranasal sinuses and mastoid air cells are clear. The surrounding soft tissues and osseous structures are unremarkable. IMPRESSION: 1. No acute intracranial hemorrhage. 2. Old bilateral basal ganglia infarcts and bilateral ischemic changes in the right and left thalamus. 3. Cortical atrophy and microvascular angiopathy. 4. If acute infarct is of clinical concern recommend MRI. ORDERING PHYSICIAN: MARIANNA MOLINA MD PROCEDURE(s): CXRP - CHEST PORTABLE REASON: altered mental status ORDER NUMBER(s): [id number], ACCESSION NUMBER(s): [id number] CHEST RADIOGRAPH Indication: altered mental status Technique: Single frontal view of the chest was obtained Comparison: None FINDINGS: Lines and Tubes: None Lungs: No focal consolidation. Pleura: No effusion. No pneumothorax. Cardiomediastinal contours: Unremarkable Bones: No acute osseous abnormality. IMPRESSION: 1. No acute cardiopulmonary disease. Assessment/Plan Assessment/Plan Metabolic encephalopathy UTI (urinary tract infection) Urinary tract infection, site not specified Amphetamine abuse Altered mental status Generalized weakness Plan 1. Admit to telemetry unit 2. Breathing treatment 3. Pain control management 4. IV antibiotic management 5. Management of fluids and electrolytes 6. Consultation for neurologist/hospitalist 7. Diagnostic test head CT 8. DVT prophylaxis-on SCDs 9. Repeat labs CBC, CMP in a.m. 10. Home medication reviewed and reconciled 11. Continue with current medical management 12. Treatment plan discussed with patient and RN. Patient verbalized understanding. Plan discussed with: Patient, Spouse (), Other (RN) My Orders Orders - DOMENICA WILLETT DNP Procedure Category Date Status Time Urine Bacterial CAROL ANN 01/02/25 In Process Culture 19:36 Ceftriaxone 1gm/50ml PHA 01/03/25 In Process D5w (Rocephin) 21:00 Allergies GIO 01/02/25 In Process 19:36 Code Status CODE 01/02/25 Transmitted 19:36 Sodium Chloride Lock PHA 01/02/25 In Process (Saline Lock Ns) 22:00 Oxygen Per Hour RT 01/02/25 Transmitted 19:36 Ondansetron Hcl PHA 01/02/25 In Process (Zofran) 19:45 Docusate Sodium PHA 01/02/25 In Process Capsule (Colace 19:45 Complete Blood Count LAB 01/03/25 Verified 04:00 Comprehensive LAB 01/03/25 Verified Metabolic Panel 04:00 Cardiac DIET 01/03/25 Transmitted Diet-2gna,Lofat,Lochol Breakfast Condition: Serious GIO 01/02/25 In Process 19:36 Acetaminophen Tablet PHA 01/02/25 In Process (Tylenol Tablet) 19:45 Bedrest With Bathroom GIO 01/02/25 In Process Privileg 19:36 Sequential GIO 01/02/25 In Process Compression Device Admit ADMIT 01/02/25 Transmitted 21:39 Nitroglycerin PHA 01/02/25 Transmitted Sublingual (Ntrostat 21:45 Stat Ekg For Chest GIO 01/02/25 Transmitted Pain 21:39 Notify Md Of Changes GIO 01/02/25 Transmitted From Base 21:39 Weather Stripper For GIO 01/02/25 Transmitted 24 Hours 21:39 Emergency Dysrhythmia GIO 01/02/25 Transmitted Protocol 21:39 Rhythm Strips Once GIO 01/02/25 Transmitted Every Shift 21:39 Oxygen By Nasal RT 01/02/25 Transmitted Cannula 21:39 Problem List: (1) Metabolic encephalopathy (2) Amphetamine abuse (3) UTI (urinary tract infection) (4) Altered mental status (5) Urinary tract infection, site not specified (6) Generalized weakness Date of Service: Jan 02, 2025 Billing Provider: DOMENICA WILLETT DNP Common Visit Codes: [id number] INP/OBS CARE (HIGH) DOMENICA WILLETT DNP Jan 02, 2025 21:40
[2025-01-02] MEDS ORDERED: NITROGLYCERIN 0.4 MG SL TAB SL PRN (21:45)
[2025-01-02] MEDS: SODIUM CHLOR 0.9% PF (SALINE LOCK) 10ML VIAL/SYR IV SCH (22:03)
[2025-01-02 23:52] VITALS: BP 118/80; PULSE 113; PULSE 73; RESP 18; TEMP 97.7; O2SAT 97
[2025-01-03] VITALS (8 sets, daily range): BP systolic 108–134; BP diastolic 73–94; PULSE 69–105; RESP 17–18; TEMP 97.8–98.7; O2SAT 94–99
--- NOTE | 2025-01-03 04:37 | ECG ---
[facility] Test Date: 2025-01-02 Test Time: 13:58:05 Pat Name: GABY GODFREY Department: ER Room: 0295T Gender: F Culture Manager: ANH : 1965 Requested By: MARIANNA POPE Order Number: [id number] Reading MD: Measurements Intervals [place] Rate: 74 P: 34 AK: 129 QRS: 18 QRSD: 91 T: 24 QT: 411 QTc: 456 Interpretive Statements Sinus rhythm Low voltage, precordial leads LVH by voltage Please click the below link to view image of tracing.
[2025-01-03 06:57] LABS: Basophils # (auto) 0 10 ^3/uL (0-0.2); Basophils % (auto) 0.6 % (0.0-2.0); Eosinophils # (auto) 0.1 10 ^3/uL (0-0.8); Eosinophils % (auto) 1.6 % (0.0-7.0); Hemoglobin 13.2 g/dL (12.2-16.2); Lymphocytes # (auto) 2.9 10 ^3/uL (0.4-5.4); Mean Corpuscular Hemoglobin 27.8 pg (28.0-32.0); Mean Corpuscular Hgb Conc. 32.9 g/dL (32.0-36.0); Mean Corpuscular Volume 84.4 fL (80.0-100.0); Monocytes # (auto) 0.6 10 ^3/uL (0-1.3); Monocytes % (auto) 7.4 % (0.0-12.0); Neutrophils # (auto) 4.4 10 ^3/uL (1.6-8.6); Neutrophils % (auto) 54.4 % (37.0-80.0); Nucleated Red Blood Cells % 0.1 %; Platelet Count (auto) 316 10^3/uL (140-450); Red Blood Cells 4.74 10^6/uL (4.0-5.20); Red Cell Distribution Width 14.9 % (11.8-14.3); White Blood Cell 8.2 10^3/uL (4.4-10.8)
[2025-01-03 07:13] LABS: Alanine Aminotransferase 20 U/L (7-40); Albumin 3.9 g/dL (3.2-4.8); Alkaline Phosphatase 80 U/L (46-116); Anion Gap 10 (5-15); Aspartate Aminotransferase 14 U/L (13-40); Blood Urea Nitrogen 17 mg/dL (9-23); Calcium 9.3 mg/dL (8.7-10.4); Carbon Dioxide 26 mmol/L (20-31); Glucose 88 mg/dL (74-106); Potassium 3.7 mmol/L (3.5-5.1); Sodium 145 mmol/L (136-145); Total Protein 6.1 g/dL (5.7-8.2)
[2025-01-03 07:14] LABS: Bilirubin, Total 0.5 mg/dL (0.2-1.0)
[2025-01-03 07:19] LABS: Chloride 109 mmol/L (98-107)
--- NOTE | 2025-01-03 13:09 | DVHPN2 ---
Reviewed: Care Plan, H&P, Labs, Medications, Previous Orders, Radiology Changes from previous H/P or p: No Changes Eyes: No Pain, No Vision change, No Conjunctivae inflammation, No Eyelid inflammation, No Other, No Redness ENT: No Ear pain, No Ear discharge, No Nose pain, No Nose discharge, No Nose congestion, No Mouth pain, No Mouth swelling, No Throat pain, No Throat swelling, No Other Cardiovascular: No Chest Pain, No Palpitations, No Orthopnea, No Paroxysmal Noc. Dyspnea, No Edema, No Lt Headedness, No Other Respiratory: No Cough, No Dry, No Shortness of breath, No SOB with excertion, No Wheezing, No Hemoptysis, No Pleuritic Pain, No Sputum, No Other Gastrointestinal: No Nausea, No Vomiting, No Abdominal Pain, No Diarrhea, No Constipation, No Melena, No Hematochezia, No Other Genitourinary: No Dysuria, No Frequency, No Incontinence, No Hematuria, No Retention, No Other Musculoskeletal: No other, No neck pain, No shoulder pain, No arm pain, No back pain, No hand pain, No leg pain, No foot pain Skin: No Rash, No Lesions, No Jaundice, No Bruising, No Other Objective Vitals Vital Signs Date Time Temp Pulse Resp B/P (MAP) Pulse Ox O2 Delivery O2 Flow Rate FiO2 01/03/25 08:30 98.7 74 17 108/73 (85) 94 98.7 01/03/25 08:05 Room Air* 0 21 Intake/Output Intake and Output 01/03/25 07:00 Intake Total 50 ml Output Total 0 ml Balance 50 ml Intake Oral 0 ml IV Total 50 ml Output Urine Total 0 ml Medications Current Medications Medications Dose Ordered Sig/Stephanie Route Start Time Stop Time Status Last Admin Dose Admin Ceftriaxone Sodium 50 ml @ 100 mls/hr Q24H IV 01/03/25 21:00 Sodium Chloride 10 ml Q8HR IV 01/02/25 22:00 01/03/25 06:16 10 ML Ondansetron HCl 4 mg Q4HP PRN IV 01/02/25 19:45 Docusate Sodium 100 mg BIDPRN PRN PO 01/02/25 19:45 Acetaminophen 650 mg Q6HP PRN PO 01/02/25 19:45 01/02/25 20:17 650 MG Nitroglycerin 0.4 mg Q5MINP PRN SL 01/02/25 21:45 Laboratory Results Laboratory Tests 01/03/25 05:57 Chemistry Test 01/02/25 15:40 01/03/25 05:57 Albumin 4.6 g/dL (3.2-4.8) 3.9 g/dL (3.2-4.8) Calcium Level 10.3 mg/dL (8.7-10.4) 9.3 mg/dL (8.7-10.4) Total Protein 6.9 g/dL (5.7-8.2) 6.1 g/dL (5.7-8.2) Cardiac Markers Test 01/02/25 15:40 B-Type Natriuretic Peptide 20.01 pg/mL (0-100) LFT Test 01/02/25 15:40 01/03/25 05:57 Alanine Aminotransferase (ALT) 31 U/L (7-40) 20 U/L (7-40) Alkaline Phosphatase 103 U/L (46-116) 80 U/L (46-116) Aspartate Amino Transferase (AST) < 8 U/L (13-40) L 14 U/L (13-40) Total Bilirubin 0.4 mg/dL (0.2-1.0) 0.5 mg/dL (0.2-1.0) Urinalysis Test 01/02/25 16:45 Urine Color Light-yellow (Yellow) Urine Clarity Clear (Clear) Urine pH 5.5 (5.0-9.0) Urine Specific [place] 1.025 (1.001-1.035) Urine Protein Trace (Negative) H Urine Ketones Negative (Negative) Urine Blood Negative /uL (Negative) Urine Nitrite 1+ (Negative) H Urine Bilirubin Negative (Negative) Urine Urobilinogen Normal mg/dL (Negative) Urine Leukocyte Esterase 1+ /uL (Negative) Urine RBC 2 /hpf (0 - 4) Urine Microscopic WBC 31 /HPF (0-5) H Urine Squamous Epithelial Cells Few /hpf (<5) Urine Bacteria Few /hpf (None Seen) H Urine Hyaline Casts Few /lpf (0 - 2) Urine Mucus Few (None Seen) Urine Glucose Normal mg/dL (Normal) Microbiology Microbiology Date/Time Source Procedure Growth Status 01/02/25 16:45 Voided Urine Urine Culture - Preliminary Resulted Labs and/or images reviewed: Labs reviewed by me, Image(s) reviewed by me Assessment/Plan Assessment/Plan Secondary to urinary tract infection: Urine cultures growing Gram-negative rods, continue Rocephin Acute metabolic encephalopathy Acute generalized weakness Amphetamine abuse: Counseling Acute dehydration: IV fluids Plan discussed with: Patient Date of Service: Jan 03, 2025 Billing Provider: MADELEINE WELLS MD Common Visit Codes: [id number] INP/OBS CARE(HIGH) MADELEINE WELLS MD Jan 03, 2025 13:08
[2025-01-03] MEDS: cefTRIAXone 1GM/50ML D5W 50 ML IV SCH (20:26)
[2025-01-04] VITALS (7 sets, daily range): BP systolic 127–140; BP diastolic 72–108; PULSE 67–108; RESP 18–20; TEMP 97.6–98.2; O2SAT 90–98
[2025-01-04] MEDS ORDERED: CIPR-173 PO (12:21)
--- NOTE | 2025-01-04 12:22 | DVHPN2 ---
Reviewed: Care Plan, H&P, Labs, Medications, Previous Orders, Radiology Changes from previous H/P or p: No Changes Eyes: No Pain, No Vision change, No Conjunctivae inflammation, No Eyelid inflammation, No Other, No Redness ENT: No Ear pain, No Ear discharge, No Nose pain, No Nose discharge, No Nose congestion, No Mouth pain, No Mouth swelling, No Throat pain, No Throat swelling, No Other Cardiovascular: No Chest Pain, No Palpitations, No Orthopnea, No Paroxysmal Noc. Dyspnea, No Edema, No Lt Headedness, No Other Respiratory: No Cough, No Dry, No Shortness of breath, No SOB with excertion, No Wheezing, No Hemoptysis, No Pleuritic Pain, No Sputum, No Other Gastrointestinal: No Nausea, No Vomiting, No Abdominal Pain, No Diarrhea, No Constipation, No Melena, No Hematochezia, No Other Genitourinary: No Dysuria, No Frequency, No Incontinence, No Hematuria, No Retention, No Other Musculoskeletal: No other, No neck pain, No shoulder pain, No arm pain, No back pain, No hand pain, No leg pain, No foot pain Skin: No Rash, No Lesions, No Jaundice, No Bruising, No Other Objective Vitals Vital Signs Date Time Temp Pulse Resp B/P (MAP) Pulse Ox O2 Delivery O2 Flow Rate FiO2 01/04/25 08:00 Room Air* 0 21 01/04/25 05:00 98.1 101 20 127/87 (100) 92 98.1 Intake/Output Intake and Output 01/04/25 07:00 Intake Total 1195 ml Balance 1195 ml Intake Oral 1145 ml IV Total 50 ml # Voids 6 Medications Current Medications Medications Dose Ordered Sig/Stephanie Route Start Time Stop Time Status Last Admin Dose Admin Ceftriaxone Sodium 50 ml @ 100 mls/hr Q24H IV 01/03/25 21:00 01/03/25 20:26 100 MLS/HR Sodium Chloride 10 ml Q8HR IV 01/02/25 22:00 01/04/25 05:46 10 ML Ondansetron HCl 4 mg Q4HP PRN IV 01/02/25 19:45 Docusate Sodium 100 mg BIDPRN PRN PO 01/02/25 19:45 Acetaminophen 650 mg Q6HP PRN PO 01/02/25 19:45 01/02/25 20:17 650 MG Nitroglycerin 0.4 mg Q5MINP PRN SL 01/02/25 21:45 Laboratory Results Laboratory Tests 01/03/25 05:57 Urinalysis Test 01/02/25 16:45 Urine Color Light-yellow (Yellow) Urine Clarity Clear (Clear) Urine pH 5.5 (5.0-9.0) Urine Specific [place] 1.025 (1.001-1.035) Urine Protein Trace (Negative) H Urine Ketones Negative (Negative) Urine Blood Negative /uL (Negative) Urine Nitrite 1+ (Negative) H Urine Bilirubin Negative (Negative) Urine Urobilinogen Normal mg/dL (Negative) Urine Leukocyte Esterase 1+ /uL (Negative) Urine RBC 2 /hpf (0 - 4) Urine Microscopic WBC 31 /HPF (0-5) H Urine Squamous Epithelial Cells Few /hpf (<5) Urine Bacteria Few /hpf (None Seen) H Urine Hyaline Casts Few /lpf (0 - 2) Urine Mucus Few (None Seen) Urine Glucose Normal mg/dL (Normal) Microbiology Microbiology Date/Time Source Procedure Growth Status 01/02/25 16:45 Voided Urine Urine Culture - Final Escherichia coli Complete Labs and/or images reviewed: Labs reviewed by me, Image(s) reviewed by me Assessment/Plan Assessment/Plan sepsis Secondary to urinary tract infection: Urine cultures growing E coli sensitive to Rocephin and Cipro, Acute metabolic encephalopathy Acute generalized weakness Amphetamine abuse: Counseling Acute dehydration: IV fluids Plan discussed with: Patient Date of Service: Jan 04, 2025 Billing Provider: MADELEINE WELLS MD Common Visit Codes: [id number] INP/OBS CARE(HIGH) MADELEINE WELLS MD Jan 04, 2025 12:22
--- NOTE | 2025-01-04 12:26 | DVHDS2 ---
Discharge Summary Date of Admission Jan 02, 2025 at 21:39 Date of Discharge: Jan 04, 2025 Admitting Diagnosis Altered mental status and confusion Wounds: None Labs/Diagnostic Data: Laboratory Results Test 01/03/25 05:57 01/02/25 17:39 01/02/25 16:45 01/02/25 16:40 White Blood Count 8.2 10^3/uL (4.4-10.8) Red Blood Count 4.74 10^6/uL (4.0-5.20) Hemoglobin 13.2 g/dL (12.2-16.2) Hematocrit 40.0 % (36.0-46.0) Mean Corpuscular Volume 84.4 fL (80.0-100.0) Mean Corpuscular Hemoglobin 27.8 pg (28.0-32.0) Mean Corpuscular Hemoglobin Concent 32.9 g/dL (32.0-36.0) Red Cell Distribution Width 14.9 % (11.8-14.3) Platelet Count 316 10^3/uL (140-450) Mean Platelet Volume 8.2 fL (6.9-10.8) Neutrophils (%) (Auto) 54.4 % (37.0-80.0) Lymphocytes (%) (Auto) 36.0 % (10.0-50.0) Monocytes (%) (Auto) 7.4 % (0.0-12.0) Eosinophils (%) (Auto) 1.6 % (0.0-7.0) Basophils (%) (Auto) 0.6 % (0.0-2.0) Neutrophils # (Auto) 4.4 10 ^3/uL (1.6-8.6) Lymphocytes # (Auto) 2.9 10 ^3/uL (0.4-5.4) Monocytes # (Auto) 0.6 10 ^3/uL (0-1.3) Eosinophils # (Auto) 0.1 10 ^3/uL (0-0.8) Basophils # (Auto) 0 10 ^3/uL (0-0.2) Nucleated Red Blood Cells 0.1 % Sodium Level 145 mmol/L (136-145) Potassium Level 3.7 mmol/L (3.5-5.1) Chloride Level 109 mmol/L (98-107) Carbon Dioxide Level 26 mmol/L (20-31) Anion Gap 10 (5-15) Blood Urea Nitrogen 17 mg/dL (9-23) Creatinine 0.68 mg/dL (0.550-1.02) Glomerular Filtration Rate Calc 100 mL/min (>90) BUN/Creatinine Ratio 25.0 (10.0-20.0) Serum Glucose 88 mg/dL (74-106) Calcium Level 9.3 mg/dL (8.7-10.4) Total Bilirubin 0.5 mg/dL (0.2-1.0) Aspartate Amino Transferase (AST) 14 U/L (13-40) Alanine Aminotransferase (ALT) 20 U/L (7-40) Alkaline Phosphatase 80 U/L (46-116) Total Protein 6.1 g/dL (5.7-8.2) Albumin 3.9 g/dL (3.2-4.8) Lactic Acid Level 1.9 mmol/L (0.4-2.0) Urine Color Light-yellow (Yellow) Urine Clarity Clear (Clear) Urine pH 5.5 (5.0-9.0) Urine Specific [place] 1.025 (1.001-1.035) Urine Protein Trace (Negative) Urine Ketones Negative (Negative) Urine Blood Negative /uL (Negative) Urine Nitrite 1+ (Negative) Urine Bilirubin Negative (Negative) Urine Urobilinogen Normal mg/dL (Negative) Urine Leukocyte Esterase 1+ /uL (Negative) Urine RBC 2 /hpf (0 - 4) Urine Microscopic WBC 31 /HPF (0-5) Urine Squamous Epithelial Cells Few /hpf (<5) Urine Bacteria Few /hpf (None Seen) Urine Hyaline Casts Few /lpf (0 - 2) Urine Mucus Few (None Seen) Urine Glucose Normal mg/dL (Normal) Urine Opiates Screen Neg (NEGATIVE) Urine Fentanyl Screen Neg (NEGATIVE) Urine Barbiturates Screen Neg (NEGATIVE) Urine Phencyclidine Screen Neg (NEGATIVE) Urine Amphetamines Screen Pos (NEGATIVE) Urine Benzodiazepines Screen Neg (NEGATIVE) Urine Cocaine Screen Neg (NEGATIVE) Urine Cannabinoids Screen Neg (NEGATIVE) Troponin I High Sensitivity 4 ng/L (</=34) Test 01/02/25 15:40 01/02/25 13:46 Ammonia < 10 umol/L (11-32) B-Type Natriuretic Peptide 20.01 pg/mL (0-100) Plasma/Serum Blood Alcohol < 3.0 mg/dL (<10) POC Glucose 140 mg/dl (70-106) Other Laboratory Tests 01/03/25 05:57 Brief Hx & Hospital Course: 59-year-old female burden for altered mental status and confusion found to have sepsis secondary to urinary tract infection treated with Rocephin urine cultures grew E coli sensitive to Rocephin and Cipro patient was found positive for amphetamine advised to quit using amphetamine . CT head negative. Chest x-ray negative. At the time of discharge vital signs are stable patient is alert awake oriented x3 and ambulatory and willing to go home. Ross Hawkins at the bedside Consults/Reason for consult None Operations or Procedures CT head chest x-ray Condition at Discharge: Fair Final Diagnosis/Problems List sepsis Secondary to urinary tract infection: Urine cultures growing Gram-negative rods, continue Rocephin Acute metabolic encephalopathy Acute generalized weakness Amphetamine abuse: Counseling Discharge Disposition: Home Discharge Instruct/Medications Diet: Regular Activity: Light activity Follow Up/Referral: Follow up with the primary Dr in one week Medications: Cipro Transmitted to pharmacy 35 (Time Taken for discharge summary 35 minutes) Discharge Statement: "Patient was advised to return to the ER or call 911 if any headaches, dizziness, shortness of breath, chest pain, abdominal pain, bleeding, fevers, or worsening of medical condition. Patient was counseled about treatment plan, medications, possible side effects, patientverbalized understanding. All questions were answered to the best of my ability. This discharge took greater then 30 minutes in planning, reviewing documentation, counseling the patient, and discussing with other team members." ASSESSMENT ASSESSMENT Hospital Course Uneventful Assessment sepsis Secondary to urinary tract infection: Urine cultures growing Gram- negative rods, continue Rocephin Acute metabolic encephalopathy Acute generalized weakness Amphetamine abuse: Counseling Date of Service: Jan 04, 2025 Billing Provider: MADELEINE WELLS MD Common Visit Codes: 44768-OIZ/OBS DISCH DAY >30min MADELEINE WELLS MD Jan 04, 2025 12:26
== END 2025-01-04 15:06 | disposition home or self-care (01) | DRG 720 ==
LOC: ER 13:34 → TELE-WESTW 21:39 → OVERFLOW 21:39 → TELE-WESTW 23:52
PROVIDERS: ADMIT Family Medicine; ATTEND Family Medicine
DX: A41.51 Sepsis due to Escherichia coli [E. coli] (principal); G93.41 Metabolic encephalopathy; E86.0 Dehydration; F15.10 Other stimulant abuse, uncomplicated; N39.0 Urinary tract infection, site not specified; I10 Essential (primary) hypertension; F17.210 Nicotine dependence, cigarettes, uncomplicated; Z88.5 Allergy status to narcotic agent; Z90.710 Acquired absence of both cervix and uterus; Z71.51 Drug abuse counseling and surveillance of drug abuser; Z79.899 Other long term (current) drug therapy
CPT/HCPCS: 36415; 70450; 71045; 80053; 80307; 80320; 81001; 82140; 82962; 83605; 83880; 84484; 85025; 87086; 87088; 87186; 93005; 96365; 96366; G0378

== ENCOUNTER 2025-01-18 13:56 | Inpatient (IN) | payer MEDICAID ==
[~2025-01-18] VITALS: Ht 154.9 cm; Wt 57.5 kg
[~2025-01-18 13:56] MED LIST: CIPR-173 PO
--- NOTE | 2025-01-18 14:16 | ED.PDOC ---
History of Present Illness HPI Comments 59 year old female presents to the ED with a chief complaint of LT sided weakness onset 10 days. states patient was discharged from [facility] on 01/04 was admitted for UTI sepsis. For the past 10 days, patient has been experiencing Lt sided weakness, dragging of LT leg, slurred speech, noticed symptoms worsen today. Patient also states she used Methamphetamine today. PMHx HTN. Denies chest pain, shortness of breath, nausea, vomiting, diarrhea, headache, abdominal pain, fever, chills. No other symptoms or modifying factors present at this time. Chief Complaint: Left Sided Weakness Time Seen by MD: 13:50 Primary Care Provider: dr. chirinos Reviewed Notes: Medications, Allergies Allergies: Coded Allergies: Codeine (Verified Allergy, Unknown, 01/01/25) Home Meds Active Scripts Ciprofloxacin Hcl (Cipro) 500 Mg Tab, 1 TAB PO BID, #20 TAB Prov:MADELEINE WELLS MD 01/04/25 Information Source: Patient, Spouse Mode of Arrival: Ambulatory Severity: Moderate Timing: Days Duration: Since onset Prehospital treatment: None Past Medical History PAST MEDICAL HISTORY: HTN Surgical History: Hysterectomy CLAIM TAKER History: No Pertinent CLAIM TAKER History Family History Family History: Reviewed,noncontributory to illness Social History Smoker: Cigarettes Alcohol: Denies ETOH Use Drugs: Methamphetamine Lives In: Home Constitutional: reports: weakness; denies: chills, diaphoresis, fatigue, fever, malaise, sweats, others EENTM: denies: blurred vision, double vision, ear bleeding, ear discharge, ear drainage, ear pain, ear ringing, eye pain, eye redness, hearing loss, mouth pain, mouth swelling, nasal discharge, nose bleeding, nose congestion, nose pain, photophobia, tearing, throat pain, throat swelling, voice changes, others Respiratory: denies: cough, hemoptysis, orthopnea, SOB at rest, shortness of breath, SOB with excertion, stridor, wheezing, others Cardiovascular: denies: chest pain, dizzy spells, diaphoresis, Dyspnea on exertion, edema, irregular heart beat, left arm pain, lightheadedness, palpitations, PND, syncope, others Gastrointestinal: denies: abdomen distended, abdominal pain, blood streaked bowels, constipated, diarrhea, dysphagia, difficulty swallowing, hematemesis, melena, nausea, poor appetite, poor fluid intake, rectal bleeding, rectal pain, vomiting, others Genitourinary: denies: abnormal vagina bleeding, burning, dyspareunia, dysuria, flank pain, frequency, hematuria, incontinence, pain, , vagina discharge, urgency, others Neurological: reports: left sided weakness, speech problems, weakness; denies: dizziness, fainting, headache, left sided numbness, numbness, paresthesia, pre- existing deficit, right sided numbness, right sided weakness, seizure, tingling, tremors, others Musculoskeletal: denies: back pain, gout, joint pain, joint swelling, muscle pain, muscle stiffness, neck pain, others Integumetry: denies: bruises, change in color, change in hair/nails, dryness, laceration, lesions, lumps, rash, wounds, others Allergic/Immunocompromised: denies: Difficulty Healing, Frequent Infections, Hives, Itching, others Hematologic/Lymphatic: denies: anemia, blood clots, easy bleeding, easy bruising, swollen glands, others Endocrine: denies: excessive hunger, excessive sweating, excessive thirst, excessive urination, flushing, intolerance to cold, intolerance to heat, unexplained weight gain, unexplained weight loss, others Psychiatric: denies: anxiety, bipolar disorder, depression, hopeless, panic disorder, schizophrenia, sleepless, suicidal, others All Other Systems: Reviewed and Negative Physical Exam General Appearance: Moderate Distress, Normal HEENT: Normal ENT Inspection, Pharynx Normal, TMs Normal Neck: Full Range of Motion, Non-Tender, Normal, Normal Inspection Respiratory: Chest Non-Tender, Lungs Clear, No Accessory Muscle Use, No Respiratory Distress, Normal Breath Sounds Cardiovascular: No Edema, No JVD, No Murmur, No Gallop, Normal Peripheral Pulses, Regular Rate/Rhythm Breast Exam: Deferred Gastrointestinal: No Organomegaly, Non Tender, No Pulsatile Mass, Normal Bowel Sounds, Soft Genitalia: Deferred Pelvic: Deferred Rectal: Deferred Extremities: No calf tenderness, Normal capillary refill, Normal inspection, Normal range of motion, Non-tender, No pedal edema Musculoskeletal : Apperance: Normal Neurologic: Alert, licensed appraiser II-XII nml as Tested, Motor Weakness, Normal Mood, No Sensory Deficits Cerebellar Function: NOT DONE Reflexes: NOT DONE Skin: Dry, Normal Color, Warm Peripheral Pulses: 3+ Radial (R), 3+ Radial (L) Lymphatic: No Adenopathy Was a procedure done? Was a procedure done?: No Differential Dx Considerations may include: TIA Electrolyte imbalance X-Ray, Labs, Meds, VS Vital Signs Date Time Temp Pulse Resp B/P (MAP) Pulse Ox O2 Delivery O2 Flow Rate FiO2 01/18/25 13:58 98.7 107 20 130/79 (96) 95 98.7 01/18/25 13:57 113 Lab Test 01/18/25 14:16 Range/Units White Blood Count 8.6 4.4-10.8 10^3/uL Red Blood Count 5.35 H 4.0-5.20 10^6/uL Hemoglobin 14.5 12.2-16.2 g/dL Hematocrit 44.8 36.0-46.0 % Mean Corpuscular Volume 83.6 80.0-100.0 fL Mean Corpuscular Hemoglobin 27.0 L 28.0-32.0 pg Mean Corpuscular Hemoglobin Concent 32.3 32.0-36.0 g/dL Red Cell Distribution Width 15.1 H 11.8-14.3 % Platelet Count 338 140-450 10^3/uL Mean Platelet Volume 8.4 6.9-10.8 fL Neutrophils (%) (Auto) 64.5 37.0-80.0 % Lymphocytes (%) (Auto) 25.4 10.0-50.0 % Monocytes (%) (Auto) 7.5 0.0-12.0 % Eosinophils (%) (Auto) 1.6 0.0-7.0 % Basophils (%) (Auto) 1.0 0.0-2.0 % Neutrophils # (Auto) 5.6 1.6-8.6 10 ^3/uL Lymphocytes # (Auto) 2.2 0.4-5.4 10 ^3/uL Monocytes # (Auto) 0.6 0-1.3 10 ^3/uL Eosinophils # (Auto) 0.1 0-0.8 10 ^3/uL Basophils # (Auto) 0.1 0-0.2 10 ^3/uL Nucleated Red Blood Cells 0.2 % Sodium Level 143 136-145 mmol/L Potassium Level 4.0 3.5-5.1 mmol/L Chloride Level 110 H 98-107 mmol/L Carbon Dioxide Level 26 20-31 mmol/L Anion Gap 7 5-15 Blood Urea Nitrogen 12 9-23 mg/dL Creatinine 0.68 0.550-1.02 mg/dL Glomerular Filtration Rate Calc 100 >90 mL/min BUN/Creatinine Ratio 17.6 10.0-20.0 Serum Glucose 103 74-106 mg/dL Calcium Level 10.1 8.7-10.4 mg/dL Current Medications Medications (Trade) Dose Ordered Sig/Stephanie Route Start Time Stop Time Status Last Admin Sodium Chloride 1,000 ml @ 1,000 mls/hr Q1H ONCE IV 01/18/25 14:00 01/18/25 14:59 DC 01/18/25 14:22 Patient alert. Generalized weakness pain Left weaker than the right. Vitals stable. Tachycardia. Establish intravenous access. Was given fluids. Recently had methamphetamine. She was recently discharged from this hospital. Reviewed her previous visit. Continues to use drugs. She does smoke cigarettes. Counseled patient on effects of smoking cigarettes for 15 minutes. Explained to the patient. Continue cardiac monitoring. Time of 1ST Reevaluation: 14:20 Reevaluation 1ST: Unchanged Patient Education/Counseling: Diagnosis, Treatment, Prognosis Family Education/Counseling: Diagnosis, Treatment, Prognosis Additional Information The following tests were ordered, and results were reviewed by me: CT ANGIO HEAD/NECK, DRUG SCREEN, CBC, UA, BMP, EKG Additional Information was gathered from interviewing the following independent historians: I reviewed and agreed with the following test results read by other providers: CT ANGIO HEAD/NECK I discussed treatment and results with medical personnel and: patient Comprehensive systems review obtained and negative except for what is stated in the HPI. Departure 1 Departure Time of Disposition: 14:26 Impression: Primary Impression: TIA (transient ischemic attack) Additional Impressions: Generalized weakness Amphetamine abuse Disposition: ADMITTED INPATIENT Admit to: Med Surg Condition: Guarded Critical Care Note Critical Care Time?: Yes (90 min-critical care time only) Critical care comment: Continue to monitor Stability Stability form required: No Heart Score Heart Score: Heart Score Response (Comments) Value History Slightly Suspicious 0 EKG Normal 0 Age 45-64 1 Risk Factors >3 or Hx ASHD 2 Troponin Normal limit 0 Total 3 I personally scribed for MARTHA LEON MD ([email or web address]) on 01/18/25 at 14:16. Electronically submitted by Carole Boyer ([email or web address]). I personally scribed for MARTHA LEON MD ([email or web address]) on 01/18/25 at 15:09. Electronically submitted by Carole Boyer ([email or web address]). MARTHA LEON MD Jan 18, 2025 14:16
[2025-01-18] MEDS: SODIUM CHLORIDE 0.9% 1,000 ML IV ONE (14:22)
[2025-01-18 14:44] LABS: Sodium 143 mmol/L (136-145)
[2025-01-18 14:45] LABS: Anion Gap 7 (5-15); Calcium 10.1 mg/dL (8.7-10.4); Carbon Dioxide 26 mmol/L (20-31)
[2025-01-18 14:46] LABS: Basophils # (auto) 0.1 10 ^3/uL (0-0.2); Eosinophils # (auto) 0.1 10 ^3/uL (0-0.8); Eosinophils % (auto) 1.6 % (0.0-7.0); Hematocrit 44.8 % (36.0-46.0); Hemoglobin 14.5 g/dL (12.2-16.2); Lymphocytes # (auto) 2.2 10 ^3/uL (0.4-5.4); Lymphocytes % (auto) 25.4 % (10.0-50.0); Mean Corpuscular Hgb Conc. 32.3 g/dL (32.0-36.0); Mean Corpuscular Volume 83.6 fL (80.0-100.0); Monocytes # (auto) 0.6 10 ^3/uL (0-1.3); Monocytes % (auto) 7.5 % (0.0-12.0); Neutrophils # (auto) 5.6 10 ^3/uL (1.6-8.6); Neutrophils % (auto) 64.5 % (37.0-80.0); Nucleated Red Blood Cells % 0.2 %; Platelet Count (auto) 338 10^3/uL (140-450); Red Blood Cells 5.35 10^6/uL (4.0-5.20); Red Cell Distribution Width 15.1 % (11.8-14.3); White Blood Cell 8.6 10^3/uL (4.4-10.8)
[2025-01-18 14:50] LABS: BUN/Creatinine Ratio 17.6 (10.0-20.0); Blood Urea Nitrogen 12 mg/dL (9-23); Glucose 103 mg/dL (74-106)
--- NOTE | 2025-01-18 14:56 | ECG ---
[facility] Test Date: 2025-01-18 Test Time: 13:57:42 Pat Name: GABY GODFREY Department: ER Room: 0240 Gender: F Accounts Receivable Supervisor: GP : 1965 Requested By: MARTHA LEON Order Number: [id number] Reading MD: Mukesh Vasquez Measurements Intervals [place] Rate: 113 P: 40 SC: 119 QRS: -4 QRSD: 81 T: 29 QT: 345 QTc: 473 Interpretive Statements Sinus tachycardia LVH by voltage Electronically Signed On 01-21-2025 13:23:54 PDT by Mukesh Vasquez Please click the below link to view image of tracing.
[2025-01-18 14:57] LABS: Chloride 110 mmol/L (98-107)
--- NOTE | 2025-01-18 15:57 | DVH ---
Procedure: CT ANGIO HEAD/Neck HISTORY: cva Comparison Study: None. Exam Date:01/18/2025 03:17 PM TECHNIQUE: CTA head without and with intravenous contrast. CTA neck with intravenous contrast. 3D [email or web address] postprocessing was performed and images were used for interpretation and reporting. 100 cc of Omni paque 300 contrast was injected intravenously. All CT scans at this medical facility are performed using dose modulation techniques as appropriate t o a performed exam including the following: Automated exposure control was utilized; adjustment of th e MA and/or KV according to patient size; and use of iterative reconstruction technique. Radiation Dose : CT Dose: CTDI volume is 22 mGy. Dose-length product is 1326 mGy*cm FINDINGS: CTA head: The visualized distal internal carotid, anterior and middle cerebral arteries demonstrate normal [place] without hemodynamically significant stenosis or occlusion. The vertebral, basilar, and posterior cerebral arteries also demonstrate normal caliber without hemod ynamically significant stenosis or occlusion. There is no evidence of intracranial arterial aneurysm or arteriovenous malformation. There is no acute intracranial hemorrhage, mass, mass effect or midline shift. There is no hydroceph alus or extra-axial fluid collection. There are moderate chronic microvascular ischemic changes in th e supratentorial white matter. There are multiple chronic lacunar infarcts in the bilateral basal amara glia and bilateral thalami. CTA neck: The visualized thoracic aortic arch and proximal great vessels are unremarkable. The bilateral common, internal and external carotid arteries are patent without hemodynamically signi ficant stenosis. The cervical segments of the right and left vertebral arteries are patent without flow-limiting steno sis or obvious dissection.. The neck soft tissues appear within normal limits. Lung apices are clear. IMPRESSION: 1. No hemodynamically significant stenosis, proximal occlusion or aneurysm in the intracranial arteri es. 2. No hemodynamically significant stenosis in the cervical segments of the carotid and vertebral vonnie terry. HS:Y
[2025-01-18] MEDS ORDERED: ONDANSETRON HCL 4 MG/2 ML VIAL IV PRN (19:15)
[2025-01-18] MEDS ORDERED: ACETAMINOPHEN 325 MG TAB PO PRN (19:15)
[2025-01-18] MEDS ORDERED: TEMAZEPAM 15 MG CAP PO PRN (19:15)
[2025-01-18] MEDS: ATORVASTATIN 20 MG TAB PO SCH (21:27)
[2025-01-18 21:47] VITALS: PULSE 104; RESP 16; O2SAT 97
--- NOTE | 2025-01-18 21:49 | DVHHP2 ---
History of Present Illness Reason for Visit: Left-sided weakness History of Present Illness 59-year-old female presents for evaluation of left-sided weakness. Patient reports being discharged approximately 10 days ago after being admitted and treated for urinary tract infection and sepsis. She states developing left lower extremity weakness and left sided facial droop three days ago. Currently the symptoms have subsided. She denies headache or blurred vision. Denies cardiac or respiratory complaints. Past Medical History Hypertension Past Surgical History Hysterectomy Family History Noncontributory Smoke: No ALCOHOL: none Drugs: None Lives: with Family Review of Systems Review of Systems Review of systems are currently negative otherwise addressed HPI. Allergies: Coded Allergies: Codeine (Verified Allergy, Unknown, 01/01/25) Medications Current Medications Medications Dose Ordered Sig/Stephanie Route Start Time Stop Time Status Last Admin Dose Admin Aspirin 162 mg DAILY PO 01/19/25 10:00 Atorvastatin Calcium 10 mg HS PO 01/18/25 22:00 01/18/25 21:27 10 MG Temazepam 15 mg QHSP PRN PO 01/18/25 19:15 Ondansetron HCl 4 mg Q4HP PRN IV 01/18/25 19:15 Enoxaparin Sodium 40 mg DAILY SC 01/19/25 10:00 Acetaminophen 650 mg Q6HP PRN PO 01/18/25 19:15 Exam Vital Signs Vital Signs Date Time Temp Pulse Resp B/P (MAP) Pulse Ox O2 Delivery O2 Flow Rate FiO2 01/18/25 20:55 98.9 108 17 150/107 (121) 96 98.9 Exam Gen: 59-year-old female in no apparent distress. Skin: Warm, dry, normal color and texture, no rash. HEENT: Normocephalic atraumatic, mucous membranes moist and pink. Neck: Cervical and supraclavicular nodes normal without enlargement, trachea is midline, thyroid gland is normal without masses. Pulmonary: Clear to auscultation and percussion bilaterally. Cardiac: Regular rate and rhythm. No murmur Abdomen: Soft, nontender, nondistended, bowel sounds present all 4 quadrants, no guarding, no rigidity, no organomegaly. Extremities: No cyanosis, clubbing, no edema Neuro: Cranial nerves II through XII grossly intact, normal affect and speech, upper and lower extremities equally strong Labs/Xrays ORDERING PHYSICIAN: MARTHA LEON MD PROCEDURE(s): [place] - ANGIO HEAD/Neck REASON: cva ORDER NUMBER(s): [id number], ACCESSION NUMBER(s): [id number] Procedure: CT ANGIO HEAD/Neck HISTORY: cva Comparison Study: None. Exam Date:01/18/2025 03:17 PM TECHNIQUE: CTA head without and with intravenous contrast. CTA neck with intravenous contrast. 3D image postprocessing was performed and images were used for interpretation and reporting. 100 cc of Omnipaque 300 contrast was injected intravenously. All CT scans at this medical facility are performed using dose modulation techniques as appropriate to a performed exam including the following: Automated exposure control was utilized; adjustment of the MA and/or KV according to patient size; and use of iterative reconstruction technique. Radiation Dose : CT Dose: CTDI volume is 22 mGy. Dose-length product is 1326 mGy*cm FINDINGS: CTA head: The visualized distal internal carotid, anterior and middle cerebral arteries demonstrate normal caliber without hemodynamically significant stenosis or occlusion. The vertebral, basilar, and posterior cerebral arteries also demonstrate normal caliber without hemodynamically significant stenosis or occlusion. There is no evidence of intracranial arterial aneurysm or arteriovenous malformation. There is no acute intracranial hemorrhage, mass, mass effect or midline shift. There is no hydrocephalus or extra-axial fluid collection. There are moderate chronic microvascular ischemic changes in the supratentorial white matter. There are multiple chronic lacunar infarcts in the bilateral basal ganglia and bilateral thalami. CTA neck: The visualized thoracic aortic arch and proximal great vessels are unremarkable. The bilateral common, internal and external carotid arteries are patent without hemodynamically significant stenosis. The cervical segments of the right and left vertebral arteries are patent without flow-limiting stenosis or obvious dissection.. The neck soft tissues appear within normal limits. Lung apices are clear. IMPRESSION: 1. No hemodynamically significant stenosis, proximal occlusion or aneurysm in the intracranial arteries. 2. No hemodynamically significant stenosis in the cervical segments of the carotid and vertebral arteries. HS:Y ATED BY: HAROON MAYNARD MD Labs Test 01/18/25 14:16 Range/Units White Blood Count 8.6 4.4-10.8 10^3/uL Red Blood Count 5.35 H 4.0-5.20 10^6/uL Hemoglobin 14.5 12.2-16.2 g/dL Hematocrit 44.8 36.0-46.0 % Mean Corpuscular Volume 83.6 80.0-100.0 fL Mean Corpuscular Hemoglobin 27.0 L 28.0-32.0 pg Mean Corpuscular Hemoglobin Concent 32.3 32.0-36.0 g/dL Red Cell Distribution Width 15.1 H 11.8-14.3 % Platelet Count 338 140-450 10^3/uL Mean Platelet Volume 8.4 6.9-10.8 fL Neutrophils (%) (Auto) 64.5 37.0-80.0 % Lymphocytes (%) (Auto) 25.4 10.0-50.0 % Monocytes (%) (Auto) 7.5 0.0-12.0 % Eosinophils (%) (Auto) 1.6 0.0-7.0 % Basophils (%) (Auto) 1.0 0.0-2.0 % Neutrophils # (Auto) 5.6 1.6-8.6 10 ^3/uL Lymphocytes # (Auto) 2.2 0.4-5.4 10 ^3/uL Monocytes # (Auto) 0.6 0-1.3 10 ^3/uL Eosinophils # (Auto) 0.1 0-0.8 10 ^3/uL Basophils # (Auto) 0.1 0-0.2 10 ^3/uL Nucleated Red Blood Cells 0.2 % Sodium Level 143 136-145 mmol/L Potassium Level 4.0 3.5-5.1 mmol/L Chloride Level 110 H 98-107 mmol/L Carbon Dioxide Level 26 20-31 mmol/L Anion Gap 7 5-15 Blood Urea Nitrogen 12 9-23 mg/dL Creatinine 0.68 0.550-1.02 mg/dL Glomerular Filtration Rate Calc 100 >90 mL/min BUN/Creatinine Ratio 17.6 10.0-20.0 Serum Glucose 103 74-106 mg/dL Calcium Level 10.1 8.7-10.4 mg/dL Assessment/Plan Assessment/Plan Assessment TIA Amphetamine abuse Hypertension Plan Admit the patient to [facility] to the hospitalist Brain MRI Nephrology consultation Resume home medications Continue treatment per orders. Plan discussed with: Patient My Orders Orders - [facility] Procedure Category Date Status Time Aspirin Tablet PHA 01/19/25 In Process 10:00 Atorvastatin (Lipitor) PHA 01/18/25 In Process 22:00 * Neurology Consult CONS 01/18/25 Transmitted 19:04 Brain Head Wo Contrast MRI 01/18/25 Logged 19:04 Basic Metabolic Panel LAB 01/19/25 Verified 04:00 Admit ADMIT 01/18/25 Transmitted 19:04 Temazepam (Restoril) PHA 01/18/25 In Process 19:15 Ondansetron Hcl PHA 01/18/25 In Process (Zofran) 19:15 Enoxaparin Sodium PHA 01/19/25 In Process (Lovenox) 10:00 Cardiac DIET 01/19/25 Transmitted Diet-2gna,Lofat,Lochol Breakfast Condition: Stable GIO 01/18/25 In Process 19:04 Acetaminophen Tablet PHA 01/18/25 In Process (Tylenol Tablet) 19:15 Bedrest With Bathroom GIO 01/18/25 In Process Privileg 19:04 Date of Service: Jan 18, 2025 Billing Provider: FERN ADORNO Common Visit Codes: [id number] INP/OBS CARE (HIGH) FERN ADORNO Jan 18, 2025 21:48
[2025-01-19] VITALS (8 sets, daily range): BP systolic 116–128; BP diastolic 72–99; PULSE 73–94; RESP 16–20; TEMP 97.5–98; O2SAT 96–99
[2025-01-19 00:58] LABS: Urine Bacteria None Seen /hpf (None Seen)
[2025-01-19 01:08] LABS: Urine Blood Negative /uL (Negative); Urine Clarity Clear (Clear); Urine Color Light-Yellow (Yellow); Urine Protein, UAD Negative (Negative); Urine Specific Gravity 1.046 (1.001-1.035); Urine Squamous Epithelial Cell FEW /hpf (<5); Urine Urobilinogen Normal (Negative); Urine WBC 6 /HPF (0-5); Urine pH 6.5 (5.0-9.0)
[2025-01-19] MEDS: cloNIDine HCL 0.1 MG TAB PO ONE (01:22)
[2025-01-19 01:43] LABS: Amphetamine Screen, Urine Pos (NEGATIVE); Barbiturate Scree,Urine Neg (NEGATIVE); Benzodiazephine Screen, Urine Neg (NEGATIVE); Cannabinoid Screen, Urine Neg (NEGATIVE); Cocaine Screen, Urine Neg (NEGATIVE); Opiate Scree,Urine Neg (NEGATIVE); Phencyclidine Screen, Urine Neg (NEGATIVE)
[2025-01-19] MEDS ORDERED: ATEN50TA PO (03:19)
[2025-01-19] MEDS ORDERED: ASPirin 81 mg TAB PO SCH (10:00)
--- NOTE | 2025-01-19 10:32 | DVH ---
EXAMINATION: MRI BRAIN HEAD WO CONTRAST INDICATION: r/o cva COMPARISON: CT scan of the head performed on 01/18/2025. TECHNIQUE: Multiplanar, multisequence magnetic resonance imaging of the brain was performed without the use of i ntravenous contrast. FINDINGS: No evidence of acute infarct. There is restricted diffusion in the right pradhan radiata consistent wi th acute infarct. No intracranial hemorrhage. No mass effect. There is moderate periventricular/deep white matter T2/FLAIR hyperintensity is nonspecific, but most commonly associated with chronic microvascular disease. The ventricles and sulci are normal in size for age. Clear basal cisterns. Flow voids in the major intracranial vessels are maintained. No abnormality of the orbits. Mastoid air cells are clear. Mucosal thickening in the right maxillary sinus. No abnormality of the visualized osseous structures and extracranial soft tissues. IMPRESSION: 1. Acute infarcts in the right pradhan radiata. 2. Moderate periventricular and subcortical T2/FLAIR white matter hyperintensities, nonspecific but m ost commonly related to sequelae of chronic microvascular ischemic changes.
[2025-01-19 10:57] LABS: INR 0.97 (0.9-1.15); Partial Thromboplastin Time 27.1 SEC (24.5-34.5); Prothrombin Time 10.3 sec (9.3-11.8)
[2025-01-19] MEDS: CLOPIDOGREL BISULFATE 75 MG TAB PO SCH (11:05)
[2025-01-19] MEDS: ASPirin 81 mg TAB PO SCH (11:05)
[2025-01-19 11:06] LABS: Alanine Aminotransferase 25 U/L (7-40); Albumin 4.2 g/dL (3.2-4.8); Alkaline Phosphatase 87 U/L (46-116); Anion Gap 10 (5-15); Aspartate Aminotransferase 18 U/L (13-40); BUN/Creatinine Ratio 17.4 (10.0-20.0); Bilirubin, Total 0.6 mg/dL (0.2-1.0); Blood Urea Nitrogen 12 mg/dL (9-23); Calcium 9.8 mg/dL (8.7-10.4); Carbon Dioxide 27 mmol/L (20-31); Chloride 106 mmol/L (98-107); Glucose 97 mg/dL (74-106); Potassium 4.1 mmol/L (3.5-5.1); Sodium 143 mmol/L (136-145); Total Protein 6.3 g/dL (5.7-8.2)
[2025-01-19] MEDS: ENOXAPARIN SOD 40 MG/0.4 ML SYRINGE SC SCH (11:06)
[2025-01-19 11:24] LABS: HDL Cholesterol 45 mg/dL (40-59)
[2025-01-19 11:28] LABS: Cholesterol 219 mg/dL (< 200); LDL Cholesterol 142 mg/dL (< 100); Triglycerides 167 mg/dL (< 150)
--- NOTE | 2025-01-19 13:27 | DVH ---
Carotid Duplex Date: 01/19/2025 11:10 AM Clinical History: stroke Comparison: None Technique: Duplex Doppler evaluation of the extracranial carotid and vertebral arteries including color Doppler and spectral/pulsed waveform analysis was performed. Findings: Velocities and ratios within normal IMPRESSION: No hemodynamically significant stenosis noted in the right carotid system. No hemodynamically significant stenosis noted in the left carotid system. Reference: Radiology 2003; 229:[id number]
--- NOTE | 2025-01-19 14:39 | DVHPNRES ---
Progress Note Date Seen: Jan 19, 2025 Resident Creating Document: WILLA MARKHAM RESIDENT Medical Necessity Reason Pt with a Central, PICC or Fol: No Subjective Review of Systems This is a 59-year-old female presents for evaluation of left-sided weakness. Past Medical History: Hypertension Past Surgical History: Hysterectomy Family History: Noncontributory SH: Smoke: No. ALCOHOL: none. Drugs: Methamphetamines. Lives: with Family Patient reports being discharged approximately 10 days ago after being admitted and treated for urinary tract infection and sepsis. She stated developing worsening left lower extremity weakness and left sided facial droop three days ago. Currently the symptoms have subsided. She denies headache or blurred vision. Denies cardiac or respiratory complaints. Patient was initially seen by me in the clinic, at the time code stroke was called given patient's left-sided weakness, slurring speech, facial numbness, patient was immediately taken to the ER and she has a head CT which was unremarkable. Patient and family members stated that she had worsening symptoms for the last several days. She currently states feeling well, continues to have slurred speech, left-sided weakness, she is able to ambulate, denies any shortness of breath, chest pain, dizziness, lightheadedness, abdominal pain, nausea, vomiting. She is currently tolerating diet. Objective vital signs Vital Sign Date Time Temp Pulse Resp B/P (MAP) Pulse Ox O2 Delivery O2 Flow Rate FiO2 01/19/25 13:00 97.8 76 16 128/78 (95) 97 97.8 01/19/25 03:17 Room Air* 0 21 Total Intake and Output 01/18/25 01/18/25 01/19/25 15:00 23:00 07:00 Intake Total 128 ml Balance 128 ml medications Current Medications Medications Dose Ordered Sig/Stephanie Route Start Time Stop Time Status Last Admin Dose Admin Temazepam 15 mg QHSP PRN PO 01/18/25 19:15 Ondansetron HCl 4 mg Q4HP PRN IV 01/18/25 19:15 Enoxaparin Sodium 40 mg DAILY SC 01/19/25 10:00 01/19/25 11:06 40 MG Acetaminophen 650 mg Q6HP PRN PO 01/18/25 19:15 Aspirin 81 mg DAILY PO 01/19/25 10:00 01/19/25 11:05 81 MG Atorvastatin Calcium 40 mg HS PO 01/19/25 22:00 Clopidogrel Bisulfate 75 mg DAILY PO 01/19/25 10:00 01/19/25 11:05 75 MG Examination Physical examination as below: General: Awake, alert, comfortable appearing, in no acute distress. HEENT: Head is normocephalic and atraumatic. Pupils are equal, round, and reactive to light. Extraocular muscles are intact. No nasal discharge. No facial trauma. Intraoral exam shows moist mucous membranes with no tonsillar enlargement or exudate. Neck: Supple with no cervical lymphadenopathy. Heart: Regular rate without murmur, rub, or gallop. Lungs: Equal breath sounds bilaterally with no wheezing, rales, or rhonchi. There is no chest wall tenderness or instability. Abdomen: No external sign of injury. Bowel sounds are present. Abdomen is soft, nontender. No rebound, no guarding, no rigidity. There are no palpable masses. There is no flank pain on exam. Extremities: Strong peripheral pulses. There is no clubbing, no cyanosis, and no edema. Skin: No rash. Neurologic: Facial droop on the right side, right facial numbness, left body hemiparesis, slurred speech, pronator drift negative, Romberg negative laboratory and microbiology Laboratory Tests 01/19/25 10:31 01/18/25 14:16 Test 01/19/25 10:31 Range/Units Serum Glucose 97 74-106 mg/dL Labs and/or images reviewed: Labs reviewed by me, Image(s) reviewed by me Problem List/Assessment/Plan Problem List/Assessment/Plan Acute ischemic stroke, right pradhan radiata Methamphetamine abuse Hypertension Ex-smoker Dyslipidemia Plan: Permissive hypertension for 24 hours Continue Plavix 75 mg p.o. q.d. Continue aspirin 81 mg p.o. q.d. Continue Lipitor 40 mg p.o. q.h.s. Continue Lovenox prophylactic Pending neurology consult Physical therapy Counseled on lifestyle modifications, smoking cessation, stopped methamphetamine abuse Consulted social media developer for DC planning Goals of care were discussed for over 30 minutes. FULL CODE. Case was discussed with Dr. Pyle Plan discussed with: Patient, Other (RN) My Orders My Orders Orders - WILLA MARKHAM Procedure Category Date Status Time Aspirin Tablet PHA 01/19/25 In Process 10:00 Atorvastatin (Lipitor) PHA 01/19/25 In Process 22:00 Clopidogrel Bisulfate PHA 01/19/25 In Process (Plavix) 10:00 Echo 2d Mode Cardiac US 01/19/25 Logged DOP 10:44 Carotid Duplx W Color US 01/19/25 Resulted DOP 10:44 * Director Athletic CONS 01/19/25 Transmitted Consult Date of Service: Jan 19, 2025 Billing Provider: WILDER PYLE MD Common Visit Codes: [id number] INP/OBS CARE(HIGH) WILLA MARKHAM RESIDENT Jan 19, 2025 14:39 WILDER PYLE MD Jan 19, 2025 16:00
[2025-01-19] MEDS: ATORVASTATIN 20 MG TAB PO SCH (22:00)
[2025-01-20 01:00] VITALS: BP 131/92; PULSE 105; RESP 19; TEMP 98.2; O2SAT 95
[2025-01-20 05:00] VITALS: BP 117/90; PULSE 102; RESP 19; TEMP 98.1; O2SAT 96
[2025-01-20 06:47] LABS: Anion Gap 10 (5-15); Carbon Dioxide 27 mmol/L (20-31); Chloride 107 mmol/L (98-107); Potassium 3.7 mmol/L (3.5-5.1); Sodium 144 mmol/L (136-145)
[2025-01-20 06:48] LABS: Calcium 9.3 mg/dL (8.7-10.4)
[2025-01-20 06:53] LABS: BUN/Creatinine Ratio 17.6 (10.0-20.0); Blood Urea Nitrogen 13 mg/dL (9-23); Glucose 88 mg/dL (74-106)
[2025-01-20 09:30] VITALS: BP 117/79; PULSE 92; RESP 16; TEMP 97.9; O2SAT 96
[2025-01-20] MEDS ORDERED: ASPI-325 PO (11:41)
[2025-01-20] MEDS ORDERED: CLOP75TA70 PO (11:41)
[2025-01-20] MEDS ORDERED: NIFE1TAB31 PO (11:41)
[2025-01-20] MEDS ORDERED: ATOR20TA50 PO (11:41)
[2025-01-20] MEDS ORDERED: PANT40TA2 PO (11:41)
[2025-01-20] MEDS ORDERED: NIC21P TOP (11:43)
[2025-01-20 12:16] VITALS: BP 123/79; PULSE 89; RESP 16; TEMP 98; O2SAT 97
[2025-01-20 13:27] VITALS: BP 123/79; PULSE 89; RESP 16; TEMP 98; O2SAT 97
--- NOTE | 2025-01-20 15:00 | DVHDSRES ---
Discharge Summary Date of Admission Resident Creating Document: WILAL MARKHAM RESIDENT Jan 18, 2025 at 19:04 Date of Discharge: Jan 20, 2025 Admitting Diagnosis Acute stroke Labs/Diagnostic Data: Laboratory Results Test 01/20/25 05:14 01/19/25 10:31 01/19/25 00:44 01/19/25 00:37 Sodium Level 144 mmol/L (136-145) Potassium Level 3.7 mmol/L (3.5-5.1) Chloride Level 107 mmol/L (98-107) Carbon Dioxide Level 27 mmol/L (20-31) Anion Gap 10 (5-15) Blood Urea Nitrogen 13 mg/dL (9-23) Creatinine 0.74 mg/dL (0.550-1.02) Glomerular Filtration Rate Calc 93 mL/min (>90) BUN/Creatinine Ratio 17.6 (10.0-20.0) Serum Glucose 88 mg/dL (74-106) Calcium Level 9.3 mg/dL (8.7-10.4) Prothrombin Time 10.3 sec (9.3-11.8) Prothrombin Time INR 0.97 (0.9-1.15) Activated Partial Thromboplast Time 27.1 SEC (24.5-34.5) Total Bilirubin 0.6 mg/dL (0.2-1.0) Aspartate Amino Transferase (AST) 18 U/L (13-40) Alanine Aminotransferase (ALT) 25 U/L (7-40) Alkaline Phosphatase 87 U/L (46-116) Total Protein 6.3 g/dL (5.7-8.2) Albumin 4.2 g/dL (3.2-4.8) Triglycerides Level 167 mg/dL (< 150) Cholesterol Level 219 mg/dL (< 200) LDL Cholesterol 142 mg/dL (< 100) HDL Cholesterol 45 mg/dL (40-59) POC Glucose 100 mg/dl (70-106) Urine Color Light-yellow (Yellow) Urine Clarity Clear (Clear) Urine pH 6.5 (5.0-9.0) Urine Specific [place] 1.046 (1.001-1.035) Urine Protein Negative (Negative) Urine Ketones Negative (Negative) Urine Blood Negative /uL (Negative) Urine Nitrite Negative (Negative) Urine Bilirubin Negative (Negative) Urine Urobilinogen Normal mg/dL (Negative) Urine Leukocyte Esterase Negative /uL (Negative) Urine RBC 2 /hpf (0 - 4) Urine Microscopic WBC 6 /HPF (0-5) Urine Squamous Epithelial Cells Few /hpf (<5) Urine Bacteria None seen /hpf (None Seen) Urine Glucose Normal mg/dL (Normal) Urine Opiates Screen Neg (NEGATIVE) Urine Fentanyl Screen Neg (NEGATIVE) Urine Barbiturates Screen Neg (NEGATIVE) Urine Phencyclidine Screen Neg (NEGATIVE) Urine Amphetamines Screen Pos (NEGATIVE) Urine Benzodiazepines Screen Neg (NEGATIVE) Urine Cocaine Screen Neg (NEGATIVE) Urine Cannabinoids Screen Neg (NEGATIVE) Test 01/18/25 14:16 White Blood Count 8.6 10^3/uL (4.4-10.8) Red Blood Count 5.35 10^6/uL (4.0-5.20) Hemoglobin 14.5 g/dL (12.2-16.2) Hematocrit 44.8 % (36.0-46.0) Mean Corpuscular Volume 83.6 fL (80.0-100.0) Mean Corpuscular Hemoglobin 27.0 pg (28.0-32.0) Mean Corpuscular Hemoglobin Concent 32.3 g/dL (32.0-36.0) Red Cell Distribution Width 15.1 % (11.8-14.3) Platelet Count 338 10^3/uL (140-450) Mean Platelet Volume 8.4 fL (6.9-10.8) Neutrophils (%) (Auto) 64.5 % (37.0-80.0) Lymphocytes (%) (Auto) 25.4 % (10.0-50.0) Monocytes (%) (Auto) 7.5 % (0.0-12.0) Eosinophils (%) (Auto) 1.6 % (0.0-7.0) Basophils (%) (Auto) 1.0 % (0.0-2.0) Neutrophils # (Auto) 5.6 10 ^3/uL (1.6-8.6) Lymphocytes # (Auto) 2.2 10 ^3/uL (0.4-5.4) Monocytes # (Auto) 0.6 10 ^3/uL (0-1.3) Eosinophils # (Auto) 0.1 10 ^3/uL (0-0.8) Basophils # (Auto) 0.1 10 ^3/uL (0-0.2) Nucleated Red Blood Cells 0.2 % Other Laboratory Tests 01/20/25 05:14 01/18/25 14:16 Brief Hx & Hospital Course: This is a 59-year-old female presents for evaluation of left-sided weakness. Past Medical History: Hypertension Past Surgical History: Hysterectomy Family History: Noncontributory SH: Smoke: No. ALCOHOL: none. Drugs: Methamphetamines. Lives: with Family Patient reports being discharged approximately 10 days ago after being admitted and treated for urinary tract infection and sepsis. She stated developing worsening left lower extremity weakness and left sided facial droop three days ago. Currently the symptoms have subsided. She denies headache or blurred vision. Denies cardiac or respiratory complaints. Patient was initially seen by me in the clinic, at the time code stroke was called given patient's left-sided weakness, slurring speech, facial numbness, patient was immediately taken to the ER and she has a head CT which was unremarkable. Patient and family members stated that she had worsening symptoms for the last several days. She currently states feeling well, continues to have slurred speech, left-sided weakness, she is able to ambulate, denies any shortness of breath, chest pain, dizziness, lightheadedness, abdominal pain, nausea, vomiting. She is currently tolerating diet. Patient has a brain MRI performed which revealed acute stroke on the right pradhan radiata, patient's current out of window given the trace symptoms started more than 30 days ago. Patient was allowed for permissive hypertension for the next 24 hours. Patient was started on physical therapy. Patient was comprehensively counseled on stopped cessation of any drugs, tobacco. She had significant clinical improvement from admission, she was doing better with physical therapy at walking. She stated needs speech therapy in the outpatient setting, although her symptoms have improved somewhat. Physical examination as below: General: Awake, alert, comfortable appearing, in no acute distress. HEENT: Head is normocephalic and atraumatic. Pupils are equal, round, and reactive to light. Extraocular muscles are intact. No nasal discharge. No facial trauma. Intraoral exam shows moist mucous membranes with no tonsillar enlargement or exudate. Neck: Supple with no cervical lymphadenopathy. Heart: Regular rate without murmur, rub, or gallop. Lungs: Equal breath sounds bilaterally with no wheezing, rales, or rhonchi. There is no chest wall tenderness or instability. Abdomen: No external sign of injury. Bowel sounds are present. Abdomen is soft, nontender. No rebound, no guarding, no rigidity. There are no palpable masses. There is no flank pain on exam. Extremities: Strong peripheral pulses. There is no clubbing, no cyanosis, and no edema. Skin: No rash. Neurologic: Facial droop on the right side, right facial numbness, left body hemiparesis, slurred speech, pronator drift negative, Romberg negative Patient will be discharge home, she will continue home medications as prescribed. Patient will continue taking Lipitor 40 mg p.o. q.d., aspirin 81 mg p.o. q.d. and Plavix 75 mg p.o. q.d. for next 21 days. Patient was also discharged on nifedipine 30 mg p.o. q.d., Protonix 40 mg p.o. q.d., nicotine patch. She will follow-up with PCP in 1-2 weeks, she will follow up with Dr. Kearney next Saturday. Patient verbalized understanding and agree with the DC plan, we spent over 30 minutes explaining the plan. Case was discussed with Dr. Pyle Operations or Procedures [place] [id number] Ph: [phone] DIAGNOSTIC IMAGING Diagnostic Imaging Report : [id number] Signed PATIENT: GABY GODFREY ACCT: [id number] UNIT: [id number] : 1965 LOC: ER ROOM / BED: / AGE / SEX: 59 / F ADM STATUS: REG ER SERVICE 1359 ORDERING PHYSICIAN: MARTHA LEON MD PROCEDURE(s): [place] - ANGIO HEAD/Neck REASON: cva ORDER NUMBER(s): [id number], ACCESSION NUMBER(s): [id number] Procedure: CT ANGIO HEAD/Neck HISTORY: cva Comparison Study: None. Exam Date:01/18/2025 03:17 PM TECHNIQUE: CTA head without and with intravenous contrast. CTA neck with intravenous contrast. 3D image postprocessing was performed and images were used for interpretation and reporting. 100 cc of Omnipaque 300 contrast was injected intravenously. All CT scans at this medical facility are performed using dose modulation techniques as appropriate to a performed exam including the following: Automated exposure control was utilized; adjustment of the MA and/or KV according to patient size; and use of iterative reconstruction technique. Radiation Dose : CT Dose: CTDI volume is 22 mGy. Dose-length product is 1326 mGy*cm FINDINGS: CTA head: The visualized distal internal carotid, anterior and middle cerebral arteries demonstrate normal caliber without hemodynamically significant stenosis or occlusion. The vertebral, basilar, and posterior cerebral arteries also demonstrate normal caliber without hemodynamically significant stenosis or occlusion. There is no evidence of intracranial arterial aneurysm or arteriovenous malformation. There is no acute intracranial hemorrhage, mass, mass effect or midline shift. There is no hydrocephalus or extra-axial fluid collection. There are moderate chronic microvascular ischemic changes in the supratentorial white matter. There are multiple chronic lacunar infarcts in the bilateral basal ganglia and bilateral thalami. CTA neck: The visualized thoracic aortic arch and proximal great vessels are unremarkable. The bilateral common, internal and external carotid arteries are patent without hemodynamically significant stenosis. The cervical segments of the right and left vertebral arteries are patent without flow-limiting stenosis or obvious dissection.. The neck soft tissues appear within normal limits. Lung apices are clear. IMPRESSION: 1. No hemodynamically significant stenosis, proximal occlusion or aneurysm in the intracranial arteries. 2. No hemodynamically significant stenosis in the cervical segments of the carotid and vertebral arteries. HS:Y ATED BY: HAROON CUTLER MD DICTATED DATE/TIME: 01/18/25 1555 SIGNED BY: HAROON CUTLER MD SIGNED DATE/TIME: 01/18/25 1555 CC: [place] [id number] Ph: [phone] DIAGNOSTIC IMAGING Diagnostic Imaging Report : [id number] Signed PATIENT: GABY GODFREY ACCT: [id number] UNIT: [id number] : 1965 LOC: [facility] ROOM / BED: [facility] / A AGE / SEX: 59 / F ADM STATUS: ADM IN SERVICE 1044 ORDERING PHYSICIAN: WILLA MARKHAM RESIDENT PROCEDURE(s): CARCL - CAROTID DUPLX W COLOR DOP REASON: stroke ORDER NUMBER(s): [id number], ACCESSION NUMBER(s): [id number] Carotid Duplex Date: 01/19/2025 11:10 AM Clinical History: stroke Comparison: None Technique: Duplex Doppler evaluation of the extracranial carotid and vertebral arteries including color Doppler and spectral/pulsed waveform analysis was performed. Findings: Velocities and ratios within normal IMPRESSION: No hemodynamically significant stenosis noted in the right carotid system. No hemodynamically significant stenosis noted in the left carotid system. Reference: Radiology 2003; 229:[id number] ATED BY: REZA WATSON MD DICTATED DATE/TIME: 01/19/251323 SIGNED BY: REZA WATSON MD SIGNED DATE/TIME: 01/19/251323 CC: [place] [id number] Ph: [phone] DIAGNOSTIC IMAGING Diagnostic Imaging Report : [id number] Signed with Jennifer PATIENT: GABY GODFREY ACCT: [id number] UNIT: [id number] : 1965 LOC: [facility] ROOM / BED: [address] [place] [address] AGE / SEX: 59 / F ADM STATUS: ADM IN SERVICE 03 ORDERING PHYSICIAN: FERN ADORNO PROCEDURE(s): [facility] - BRAIN HEAD WO CONTRAST REASON: r/o cva ORDER NUMBER(s): [id number], ACCESSION NUMBER(s): [id number] ADDENDUM ADDENDUM # 1 Critical findings were discussed with nurse Garsia on 01/19/2025 at 1:15 p.m. SPORTS DEVELOPMENT OFFICER by Dr. Campbell. ORIGINAL REPORT EXAMINATION: MRI BRAIN HEAD WO CONTRAST INDICATION: r/o cva COMPARISON: CT scan of the head performed on 01/18/2025. TECHNIQUE: Multiplanar, multisequence magnetic resonance imaging of the brain was performed without the use of intravenous contrast. FINDINGS: No evidence of acute infarct. There is restricted diffusion in the right pradhan radiata consistent with acute infarct. No intracranial hemorrhage. No mass effect. There is moderate periventricular/deep white matter T2/FLAIR hyperintensity is nonspecific, but most commonly associated with chronic microvascular disease. The ventricles and sulci are normal in size for age. Clear basal cisterns. Flow voids in the major intracranial vessels are maintained. No abnormality of the orbits. Mastoid air cells are clear. Mucosal thickening in the right maxillary sinus. No abnormality of the visualized osseous structures and extracranial soft tissues. IMPRESSION: 1. Acute infarcts in the right pradhan radiata. 2. Moderate periventricular and subcortical T2/FLAIR white matter hyperintensities, nonspecific but most commonly related to sequelae of chronic microvascular ischemic changes. ATED BY: VERONIQUE CAMPBELL MD DICTATED DATE/TIME: 01/19/25 1119 SIGNED BY: VERONIQUE CAMPBELL MD SIGNED DATE/TIME: 01/19/25 1119 CC: EXAMINATION: MRI BRAIN HEAD WO CONTRAST INDICATION: r/o cva COMPARISON: CT scan of the head performed on 01/18/2025. TECHNIQUE: Multiplanar, multisequence magnetic resonance imaging of the brain was performed without the use of intravenous contrast. FINDINGS: No evidence of acute infarct. There is restricted diffusion in the right pradhan radiata consistent with acute infarct. No intracranial hemorrhage. No mass effect. There is moderate periventricular/deep white matter T2/FLAIR hyperintensity is nonspecific, but most commonly associated with chronic microvascular disease. The ventricles and sulci are normal in size for age. Clear basal cisterns. Flow voids in the major intracranial vessels are maintained. No abnormality of the orbits. Mastoid air cells are clear. Mucosal thickening in the right maxillary sinus. No abnormality of the visualized osseous structures and extracranial soft tissues. IMPRESSION: 1. Acute infarcts in the right pradhan radiata. 2. Moderate periventricular and subcortical T2/FLAIR white matter hyperintensities, nonspecific but most commonly related to sequelae of chronic microvascular ischemic changes. ATED BY: VERONIQUE CAMPBELL MD DICTATED DATE/TIME: 01/19/25 103 SIGNED BY: VERONIQUE CAMPBELL MD SIGNED DATE/TIME: 01/19/25 103 CC: Condition at Discharge: Guarded Final Diagnosis/Problems List Acute ischemic stroke, right pradhan radiata Methamphetamine abuse Hypertension Ex-smoker Dyslipidemia Discharge Disposition: Home Discharge Instruct/Medications Diet: Cardiac 2g Na,low cholest Activity: No Restrictions, As Tolerated Follow Up/Referral: FU WITH DR. KEARNEY IN [facility] CLINIC NEXT SATURDAY Medications: CONTINUE HOME MEDS PRESCRIBED Discharge Statement: "Patient was advised to return to the ER or call 911 if any headaches, dizziness, shortness of breath, chest pain, abdominal pain, bleeding, fevers, or worsening of medical condition. Patient was counseled about treatment plan, medications, possible side effects, patientverbalized understanding. All questions were answered to the best of my ability. This discharge took greater then 30 minutes in planning, reviewing documentation, counseling the patient, and discussing with other team members." ASSESSMENT ASSESSMENT Assessment ACUTE STROKE Date of Service: Jan 20, 2025 Billing Provider: WILDER PYLE MD Common Visit Codes: 93003-UDT/OBS DISCH DAY >30min WILLA MARKHAM Jan 20, 2025 15:00 WILDER PYLE MD Jan 20, 2025 15:40
--- NOTE | 2025-01-20 17:18 | DVHSR ---
APPROVED REPORT EXAM: Two-dimensional and M-mode echocardiogram with Doppler and color Doppler. Blood Pressure: 116/83 mmHg INDICATION stroke RISK FACTORS Height: 5'1, Weight: 127 DIMENSIONS LVDd3.8 (3.8-5.7cm)LA (2D)2.7 (1.9-4.0cm)Aortic Root3.2 (2.0-3.7cm) LVDs2.8 (2.5-4.0cm)LA (MM) (1.9-4.0cm)Aortic Cusp Exc1.4 (1.5-2.0cm) EF (%) 55.0 (55-70%)Rt. Atrium3.3 (1.9-4.0cm)Asc. Aorta3.9 cm IVSd1.0 (0.7-1.1cm)RV (D)2.9 (1.8-2.4cm) PWd1.1 (0.7-1.1cm) Mitral Valve MitralMitral Stenosis E wave0.46m/sMV Mean GR.mmHg A wave0.99m/sMV Peak GR.28mmHg E/A ratio0.52D MVAcm2 DECEL [id number] 1/2 Timems Aortic Valve Aortic ValveAortic Stenosis V10.87m/Nadege Mean GR.3mmHg V21.05m/Nadege Peak GR.4mmHg LVOT Diameter2.0 (1.8-2.4cm)Doppler AVA2.60cm2 Pulmonic Valve V20.69m/s Other Information Quality : Technically LimitedRhythm : Technically limited study due to patient position.body habitus. Conclusion Technically good study. Sinus rhythm. Aortic root enlargement of significant degree. Concentric LVH. Valves are normal. Mild aortic sclerosis. Tricuspid and pulmonic or within normal limits. Left ventricular function is preserved. Normal right ventricular performance. [id number] TR. No pericardial effusion masses or vegetations discernible.
== END 2025-01-20 15:55 | disposition home or self-care (01) | DRG 45 ==
LOC: ER 13:56 → OVERFLOW 19:04 → EAST 01-19 02:42
PROVIDERS: ADMIT Internal Medicine; ATTEND Internal Medicine
DX: I63.9 Cerebral infarction, unspecified (principal); G81.94 Hemiplegia, unspecified affecting left nondominant side; E78.5 Hyperlipidemia, unspecified; F15.10 Other stimulant abuse, uncomplicated; I10 Essential (primary) hypertension; Z88.5 Allergy status to narcotic agent; Z79.2 Long term (current) use of antibiotics; Z90.710 Acquired absence of both cervix and uterus; Z87.891 Personal history of nicotine dependence; Z79.899 Other long term (current) drug therapy
CPT/HCPCS: 36415; 70496; 70498; 70551; 80048; 80053; 80061; 80307; 81001; 82962; 85025; 85610; 85730; 87081; 93005; 93306; 93886; 96360; 97110; 97116; 97163; 97530; 99291; 99292; G0378

== ENCOUNTER → 2025-02-18 | Outpatient (CLI) | payer MEDICAID ==
[~2025-02-18] VITALS: Ht 154.9 cm; Wt 64.9 kg
[~2025-02-18] MED LIST changes: +ASPI-325 PO; +ATOR20TA50 PO; -CIPR-173 PO; +CLOP75TA70 PO; +NIC21P TOP; +NIFE1TAB31 PO; +PANT40TA2 PO
[2025-02-18] MEDS: REGADENOSON 0.4 MG/5 ML SYRG IV ONE ×2 (12:01)
--- NOTE | 2025-02-23 07:55 | DVHSR ---
APPROVED REPORT Exam: Nuclear Stress Test Indication: R/O Ischemia BMI: 0 Medical History Medical History: HTN Allergies: Codeine Stress Test Details Stress Test: Pharmacologic stress testing performed using 0.4 mg of regadenoson per 5 mL given IV ov er 10 seconds. HR Resting HR: 90 bpmMax Heart Rate (APMHR): 160.342737 bpm Max HR Achieved: 114 bpmTarget HR (85% APMHR): 136.276904 bpm % of APMHR: 71.25 Recovery HR: 97 bpm BP Resting BP: 133/80 mmHg Recovery BP: 125/71 mmHg ECG Resting ECG: Sinus Rhythm Clinical Reason for Termination: Completed protocol Nurse Comments Recieved pt. from [facility]. A/Ox4 on RA. Connected to digital print operator, VS stable. PIV flushes well. Reviewed POC. Pt. verbalized understanding of procedure including risks and side ef fects, agrees for stress testing. Lexiscan stress test performed per protocol. DIRAmed administered Cardiolite. Pt. tolerated well . Pt. stable, no change on exam. VS returned to baseline. Transferred to [facility] via wheelchair w/ te ch. Stress ECG Conclusion lvef 69% normal perfusin scan no severe ischemia noted NM EXAM: Myocardial Perfusion REST/STRESS Imaging Protocol: Rest Tc-99m/Stress Tc-99m 1 day Resting Data Rest SPECT myocardial perfusion imaging was performed in supine position 60 minutes following the int ravenous injection of 15 mCi of Tc-99m Sestamibi. Time of rest injection: 11:10 Date: 02/18/2025 Time of rest imagin:10 Date: 02/18/2025 Administration Route: IV Administration Site: Left AC Pharmacologic Stress Pharmacologic stress test was performed by injecting Regadenoson 0.4 mg IV push followed by the intra venous injection of 32.3 mCi of Tc-99m Sestamibi. Time of stress injection: 12:04 Date: 02/18/2025 Time of stress imagin:04 Date: 02/18/2025 Administration Route: IV Administration Site: Left AC Gated Stress SPECT was performed 60 minutes after stress injection. The images were gated to evaluate regional wall motion and calculate left ventricular ejection fracti on. Stress only was performed in the Supine position. Nuclear Conclusion Nuclear Findings: negative for ischemia lvef 69% normal perfusin scan no severe ischemia noted
== END | disposition home or self-care (01) ==
LOC: XYW 10:36
PROVIDERS: ATTEND Internal Medicine
DX: R07.9 Chest pain, unspecified (principal); I10 Essential (primary) hypertension; I63.9 Cerebral infarction, unspecified; Z12.31 Encounter for screening mammogram for malignant neoplasm of breast; F15.10 Other stimulant abuse, uncomplicated; F17.210 Nicotine dependence, cigarettes, uncomplicated; Z88.5 Allergy status to narcotic agent
CPT/HCPCS: 78452; 93017; A9500; J2785

== ENCOUNTER → 2025-02-19 | Outpatient (CLI) | payer MEDICAID | END | disposition home or self-care (01) | LOC: LAB 12:13 | PROVIDERS: ATTEND Internal Medicine | DX: Z12.11 Encounter for screening for malignant neoplasm of colon (principal); N39.0 Urinary tract infection, site not specified; Z09 Encounter for follow-up examination after completed treatment for conditions other than malignant neoplasm | CPT/HCPCS: 82274 ==

== ENCOUNTER 2025-07-13 14:08 | Outpatient (CLI) | payer MEDICAID ==
[2025-07-13 15:49] LABS: Potassium 4.1 mmol/L (3.5-5.1)
[2025-07-13 15:51] LABS: Calcium 9.4 mg/dL (8.7-10.4)
[2025-07-13 15:54] LABS: Carbon Dioxide 25 mmol/L (20-31)
[2025-07-13 15:56] LABS: BUN/Creatinine Ratio 6.3 (10.0-20.0); Glucose 94 mg/dL (74-106)
[2025-07-13 16:09] LABS: Amphetamine Screen, Urine Pos (NEGATIVE); Barbiturate Scree,Urine Neg (NEGATIVE); Benzodiazephine Screen, Urine Neg (NEGATIVE); Cannabinoid Screen, Urine Neg (NEGATIVE); Cocaine Screen, Urine Neg (NEGATIVE); Opiate Scree,Urine Neg (NEGATIVE); Phencyclidine Screen, Urine Neg (NEGATIVE)
[2025-07-13 16:10] LABS: Blood Urea Nitrogen 5 mg/dL (9-23); Chloride 107 mmol/L (98-107)
[2025-07-13 17:25] LABS: Anion Gap 10 (5-15); Sodium 142 mmol/L (136-145)
== END 2025-07-13 17:00 | disposition home or self-care (01) ==
LOC: LAB 14:08
PROVIDERS: ATTEND Internal Medicine
DX: E26.09 Other primary hyperaldosteronism (principal)
CPT/HCPCS: 36415; 80048; 80307; 82088; 82626; 82672; 83835; 84244; 84403; 84443

== ENCOUNTER 2025-07-21 12:57 | Outpatient (CLI) | payer MEDICAID | END 2025-07-21 17:00 | disposition home or self-care (01) | LOC: LAB 12:57 | PROVIDERS: ATTEND Internal Medicine | DX: E26.09 Other primary hyperaldosteronism (principal) | CPT/HCPCS: 82530; 82533; 83835 ==